=== PATIENT | male | born 1960 | race Caucasian/White ===

== ENCOUNTER → 2023-08-28 10:35 | Outpatient (REF) | payer OTHER, SELFPAY ==
[2023-08-28 11:13] VITALS: BP 141/91; BP_SYST 64
[2023-08-28 11:20] LABS: Hematocrit 48.4 % (39.0-52.0); Hemoglobin 15.5 g/dL (13.0-18.0); Mean Corpuscular Hgb 27.1 pg (27.0-31.0); Mean Corpuscular Volume 84.5 fL (80.0-94.0); Red Blood Cell Count 5.73 10^6/uL (4.70-6.10); Red Cell Dist. Width 14.3 % (11.5-14.5); White Blood Cell Count 5.7 10^3/uL (4.8-10.8)
[2023-08-28 11:32] LABS: INR 1.16; PT 14.6 Sec (11.4-14.6)
[2023-08-28 11:41] LABS: Absolute Neutrophils -Man Diff 2.4 10^3/uL (1.4-6.5); Band Neutrophils 0 % (0-3); Lymphocytes 33 % (20-51); Mean Platelet Volume 12.1 fL (7.4-10.4); Monocytes 24 % (2-9); Normal RBC Morphology Yes; Platelet Count 66 10^3/uL (130-400); Platelets Checked Yes; Segmented Neutrophils 43 % (42-75); Total Cells Counted 100
[2023-08-28] MEDS: ATIVAN 0.5 MG IV (12:21)
[2023-08-28] MEDS: NSS (PRESERVATIVE FREE) 0.25 ML IV (12:21)
[2023-08-28 12:55] VITALS: BP 122/82; BP_SYST 62
[2023-08-28 13:00] VITALS: BP 123/84; BP_SYST 68
[2023-08-28 13:05] VITALS: BP 121/77; BP_SYST 68
== END ==
LOC: RADI 10:35
PROVIDERS: ATTENDING PHYSICIAN Internal Medicine Hematology & Oncology
DX: D69.49 Other primary thrombocytopenia (principal)
CPT/HCPCS: 88305; 88311; 88312; 36415; 38222; 77012; 85025; 85610; 88313; 88341; 88342

== ENCOUNTER 2023-10-08 06:40 | Day surgery (SDC) | payer OTHER, SELFPAY ==
[2023-09-27 08:53] LABS: Hematocrit 46.2 % (39.0-52.0); Hemoglobin 14.7 g/dL (13.0-18.0); Mean Corp Hgb Conc. 31.8 g/dL (33.0-37.0); Mean Corpuscular Volume 84.8 fL (80.0-94.0); Platelet Count 59 10^3/uL (130-400); Red Blood Cell Count 5.45 10^6/uL (4.70-6.10); Red Cell Dist. Width 14.5 % (11.5-14.5); White Blood Cell Count 5.3 10^3/uL (4.8-10.8)
[2023-09-27 10:42] VITALS: BMI 20.2
[2023-09-27 11:08] LABS: Blood Urea Nitrogen 13 mg/dl (9-20); Calcium 9.2 mg/dl (8.4-10.2); Carbon Dioxide 29 mmol/L (22-30); Chloride 101 mmol/L (98-107); Estimated Creatinine Clearance 97 ml/min; Glucose 84 mg/dl (70-99); Potassium 3.8 mmol/L (3.5-5.1); Sodium 139 mmol/L (135-145); eGFR > 60.00
[2023-09-27 12:06] LABS: Absolute Neutrophils -Man Diff 1.5 10^3/uL (1.4-6.5); Atypical Lymphocytes 9 %; Band Neutrophils 2 % (0-3); Eosinophils 1 % (0-6); Lymphocytes 45 % (20-51); Metamyelocytes 2 % (-); Monocytes 13 % (2-9); Platelets Checked Yes; Segmented Neutrophils 28 % (42-75)
[2023-09-27 12:07] LABS: Normal RBC Morphology Yes; Total Cells Counted 100
--- NOTE | 2023-10-01 12:53 | PTCARENOTE ---
Patients 09/26 platelets Rayna Guevara @ Dr Rodriguez office notified- T&S done in PAT, CBC to be repeated DOS
[2023-10-08] VITALS (8 sets, daily range): BP systolic 109–129; BP diastolic 70–86
[2023-10-08] MEDS: NORMOSOL-R 1000 IV (08:04)
[2023-10-08] MEDS: TYLENOL 1000 MG PO (08:05)
[2023-10-08 08:20] LABS: Hematocrit 42.1 % (39.0-52.0); Hemoglobin 14.5 g/dL (13.0-18.0); Mean Corp Hgb Conc. 34.4 g/dL (33.0-37.0); Mean Corpuscular Hgb 27.7 pg (27.0-31.0); Mean Corpuscular Volume 80.3 fL (80.0-94.0); Platelet Count 116 10^3/uL (130-400); Red Blood Cell Count 5.24 10^6/uL (4.70-6.10); Red Cell Dist. Width 15.5 % (11.5-14.5)
--- NOTE | 2023-10-08 09:56 | OR.RPT ---
Operative Report
Operative Report
Primary Surgeon: Dior
Assisting: Darius VEE
Pre-op Diagnosis: Right inguinal hernia
Post-op Diagnosis: Same
Procedure Performed: Robot assisted laparoscopic repair right inguinal ehrnia
Anesthesia Type: GETA
Specimen / Cultures: None
Estimated Blood Loss: 30cc
Complications: None immediate
Operative Findings: Indirect defect, large sac completely reduced, no cord lipoma, oozing deep in the canal controlled with direct pressure, XL MID 3D max
Date of surgery: 10/05/23
Indications:� This 63M developed symptomatic right inguinal hernia. Robot assisted laparoscopic repair was planned.
Description of procedure:� The patient was taken to the operating room and positioned into supine position. The patient�s abdomen was prepped and draped in standard sterile fashion. A time-out was completed verifying correct patient, procedure,
site, positioning, and implants and special equipment prior to beginning this procedure.� The hernia was manually reduced after induction. A stab incision was made in the left upper quadrant, a Veress needle was inserted and proper position was
confirmed by aspiration and saline drop test. Following this, pneumoperitoneum was created with insufflation of carbon dioxide to 12 mmHg. Then a 8mm robotic trocar was inserted above and to the left of the umbilicus. A laparoscope was inserted and
the area of initial trocar entry and Veress needle placement were both inspected and no injuries were found. Two 8mm trocars were then placed lateral to the rectus sheath under direct visualization.
Both inguinal regions were inspected and the median umbilical ligament, medial umbilical ligament, and lateral umbilical fold were identified. Attention was turned to the right groin. The peritoneum was incised transversely above the defect and a
flap was developed in the caudad direction. Ravi�s ligament was identified ultimately dissected to its junction with the iliac vein and the space of Retzius was developed bluntly.� The dissection was continued inferiorly to the iliopubic tract,
with care taken to avoid injury to the femoral branch of the genitofemoral nerve and the lateral femoral cutaneous nerve. The cord structures were parietalized.
The direct space was inspected and a hernia was not identified. The femoral space was inspected a small defect was identified, without contents.� The indirect space was inspected and a hernia was identified and reduced by gentle traction. The canal
was inspected and no cord lipoma was identified. Thre was small ozing from the canal that was controlled by packing a raytec into the space and holding pressue.
Extra large right MID 3D max mesh was passed through a trocar. The mesh was placed into the preperitoneal space and moved into position to lay flat and completely cover the direct, indirect, and femoral spaces with overlap at the midline. The mesh
was secured into place using 2-0 vicryl suture to Ravi�s ligament medially and laterally. Care was taken to avoid the inferolateral triangles containing the iliac vessels and genital nerves. The peritoneal flap was closed over the mesh and secured
with 2-0 monocryl stratafix suture in similar positions of safety. A 14g angiocath was used to decompress the preperitoneal space revealing good seal and all mesh in good position without folding or curling.
After ensuring adequate hemostasis, the trocars were removed and the pneumoperitoneum allowed to escape. The trocar incisions were closed at the skin level using 4-0 monocryl and topical skin adhesive. All counts were correct and the patient
tolerated the procedure well and was taken to the postanesthesia care unit in stable condition.
The assistance of Les VEE was required due to the complexity of the procedure. During the procedure he assisted with retraction, resection, and closure of the wound.
[2023-10-08 10:49] LABS: White Blood Cell Count 5.2 10^3/uL (4.8-10.8)
[2023-10-08] MEDS: TYLENOL 650 MG PO (12:14)
== END 2023-10-08 12:30 | disposition home or self-care (01) ==
LOC: SDS 06:40
PROVIDERS: ATTENDING PHYSICIAN Surgery; FAMILY PHYSICIAN Family Medicine; OTHER PHYSICIAN Internal Medicine Hematology & Oncology
DX: K40.90 Unilateral inguinal hernia, without obstruction or gangrene, not specified as recurrent (principal)
CPT/HCPCS: 49650; 36415; 80048; 85025; 85027; 86850; 86900; 86901; 93005; C1781

== ENCOUNTER 2023-10-12 21:51 | Inpatient (IN) | payer OTHER, SELFPAY ==
[2023-10-12] VITALS (7 sets, daily range): BP systolic 96–121; BP diastolic 63–82; BMI 25.6
--- NOTE | 2023-10-12 16:35 | ED.GENMED ---
History of Present Illness
General
Chief Complaint: Post Operative Problem(s)
Source: patient
Exam Limitations: none
Time Seen by Provider: 10/12/23 16:35
Nursing documentation reviewed up to this point in time: agreed with
History of Present Illness
History of Present Illness:
The patient is a 63-year-old man with a past medical history of thrombocytopenia who recently underwent a right inguinal hernia repair surgery done about 4 days ago. Patient reports fever as well as increased pain and bruising in his right lower
back, right lower abdomen, and scrotal area. His reports that he had a fever as high as 101.5 yesterday. The patient reports increased bruising in his scrotum and in his right flank area. He reports a mild cough and increased frequency of
urination. His reports that he almost passed out multiple times. Patient appears pale and tired.
Past History
Past History
ED Past Medical History: Other (Thrombocytopenia)
ED Past Surgical History: Other
Social History
Tobacco: Non-smoker
Alcohol: None
Drug: None
Personal:
Living: with family
Employment: Other
Family History
Family History: Other
Review of Systems
Review of Systems
Allergies reviewed?: Yes
All Other Systems: ROS reviewed and negative except as documented in HPI and ROS
Constitutional: Reports fatigue
EENT: Reports no symptoms
Respiratory: Reports cough
Cardiac: Reports no symptoms
ABD/GI: Reports abdominal pain and anorexia
: Reports other
Musculoskeletal: Reports no symptoms
Skin: Reports no symptoms
Neurological: Reports no symptoms
Endocrine: Reports no symptoms
Hematologic/Lymphatic: Reports bruising
Phy Exam
Physical Exam
Physical Exam:
Physical Exam
General: Patient appears pale and tired but is awake
Neck: supple. no meningeal signs. normal psoterior pharynx
Heart: Tachycardic, regular
Lungs: no acute respiratory distress. clear bilaterally
Abdomen: Diminished bowel sounds. Extensive right lower flank ecchymoses. Scrotum is fully ecchymotic. Very tender in right flank and right lower quadrant
Neuro: alert and oriented. no focal neurological deficits
Skin: no rash
Psychiatric: well kept. interactive and cooperative
Extremities: no edema. no calf tenderness. negative homans. good distal pulses
Course
Orders/Labs/Results
Orders:
Orders
10/12/23 Dinner
NPO
Allow oral meds: Yes
Allow clear liquids: No
NPO with Ice Chips: No
10/12/23 16:37
0.9% Sodium Chloride 1000 ml [Nss] 1,000 ml IV BOLUS
10/12/23 16:48
CR Chest - 2 Views Urgent
Comment:
Reason For Exam: cough
10/12/23 16:54
Complete Blood Count/With Diff Urgent
Comprehensive Metabolic Panel Urgent
Lactic Acid Q4H
Comment: CANCEL 2nd LACTIC ACID IF 1st LACTIC ACID IS LESS THAN 2
Manual Differential Urgent
Blood Culture Q30M
LION Source: Blood/Venous
Specimen Description:
Blood Culture Q30M
LION Source: Blood/Venous
Specimen Description:
10/12/23 17:14
Morphine Sulfate 2 mg IV NOW STA
Ondansetron Injectable [Zofran] 4 mg IV NOW STA
10/12/23 17:22
Type+Screen Urgent
10/12/23 17:25
Electrocardiogram (*1) Urgent
Reason for Study: Fatigue / Weakness
EKG- Treatment ONCE
10/12/23 18:46
CT Angio Abd/Pelvis w/wo IV [CT Abd/pelvis Angio W/wo Iv] Urgent
Comment:
Reason For Exam: post-op fever, RLQ pain
10/12/23 20:11
Urinalysis Reflex To Culture Urgent
Date Specimen was Collected: 10/12/23
Time Specimen was Collected: 20:08
Urine Microscopic Reflex Cult Urgent
10/12/23 20:43
Morphine Sulfate 2 mg IV NOW STA
Ondansetron Injectable [Zofran] 4 mg IV NOW STA
10/12/23 21:30
Morphine Sulfate 2 mg IV NOW STA
10/12/23 21:34
Admit/Transfer Patient As Directed
Co-Sign Provider:
Level of Care: Inpatient admission
Assign to:: Telemetry
Physician / Group: qing hernández
Diagnosis: sepsis 2/2 r ing hernia repair /pelvic hematoma, thrombocytopenia
Reason for Telemetry: Arrhythmia
Date to Stop Telemetry: 10/15/23
Time to Stop Telemetry: 11:00
Reason for Hospitalization: sepsis 2/2 r ing hernia repair, thrombocytopenia
Expected length of stay greater than two midnights?: Yes
ELOS- Estimated Length of Stay in days: 4
I certify the patient meets the requirements for IP care: Yes
10/12/23 21:35
Code Status As Directed
Resuscitation Status: Full Code
10/12/23 21:45
0.9% Sodium Chloride 1000 ml [Nss] 1,000 ml IV 80 mls/hr
10/12/23 21:46
Consult Surgery [SURGICAL CONSULT] Routine
Consulting Provider: Nitish Mello
Was physician already notified: Yes
Reason for consult: lg hematomat at surgical hernia repair site with sepsis
10/12/23 21:48
Doxycycline Hyclate [Vibramycin] 100 mg 0.9% Sodium Chloride 250 ml [Nss] 250 ml IV NOW
10/12/23 21:56
Lactic Acid Q4H
Comment: CANCEL 2nd LACTIC ACID IF 1st LACTIC ACID IS LESS THAN 2
10/12/23 22:00
Flush (0.9% Sodium Chloride) [Flush (Nss)] See Dose Instructions IV PER PROTOCOL
10/15/23 11:00
DC Protocol for Telemetry ONCE
Abnormal Lab Results
10/12/23 10/12/23
16:54 20:11
WBC 26.5 H 10^3/uL
(4.8-10.8)
RBC 4.23 L 10^6/uL
(4.70-6.10)
Hgb 11.5 L D g/dL
(13.0-18.0)
Hct 34.1 L %
(39.0-52.0)
Plt Count 58 L D 10^3/uL
(130-400)
Abs Neuts (Manual) 11.3 H 10^3/uL
(1.4-6.5)
Lymphocytes (Manual) 3 L %
(20-51)
Monocytes (Manual) 54 H %
(2-9)
Sodium 131 L mmol/L
(135-145)
Chloride 97 L mmol/L
(98-107)
Glucose 135 H mg/dl
(70-99)
Total Bilirubin 1.9 H mg/dl
(0.2-1.3)
AST 16 L U/L
(17-59)
Urine Ketones 3+ A
(Negative)
Urine Bilirubin 1+ A
(Negative)
Leukocyte Esterase Rfl Trace A
(Negative)
10/12/23 16:54
10/12/23 16:54
Vital Signs
Initial and Last Documented VS:
Initial Vital Signs
Temp Pulse Resp BP Pulse Ox
99.4 F 103 18 103/75 97
10/12/23 15:29 10/12/23 15:29 10/12/23 15:29 10/12/23 15:29 10/12/23 15:29
Last Documented Vital Signs
Temp Pulse Resp BP Pulse Ox
99.4 F 102 18 104/66 97
10/12/23 15:29 10/12/23 22:15 10/12/23 22:15 10/12/23 21:00 10/12/23 21:15
MDM/Problems Addressed
Differential Diagnosis Includes:
Postoperative hematoma, intra-abdominal abscess, bacteremia
MDM/Problems Addressed:
Patient presents with acute fever, and right lower abdominal and flank bruising and pain
Chronic conditions affecting care:
Thrombocytopenia
Acute Exacerbation and/or Progression of Chronic Illness:
Given that patient has a history of thrombocytopenia this can cause acute bleeding
*Radiology
Radiology exam reviewed: radiology read reviewed
*Pulse Oximetry
Patient hypoxic: no
*EKG
Interpreted by ED Provider?: NA
Interpretation: normal
Comparison EKG: no changes
Rate: normal
Rhythm: sinus
[place]: normal axis
Interval: normal interval
QRS Pattern: normal QRS
Ischemia: no ischemia
*Tie Worker Interpretation
Rate: tachycardiac
Interpretation: abnormal
Rhythm: sinus
*Critical Care Note
Total Time (30-74mins, 75-104mins- exclusive of procedures): 45 minutes
comment:
45 minutes of critical care given to patient including frequent reassessments of his heart rate, blood pressure, reviewing his CAT scan report with radiology as well as general surgery
Data Reviewed
Review of Other/Old Records Reveals: Operative Reports (Operative note reviewed from Dr. Rader from 10/08/2023 when patient underwent scheduled right inguinal hernia surgery)
Source: patient and spouse
Patient Management
Discussion with other providers: Hospitalist and Other (Case and CAT scan discussed with Dr. Momo Sheldon from general surgery who recommended IV doxycycline)
Escalation/DeEscalation of care consider admission/obs:
Patient admitted to hospitalist service for persistent thrombocytopenia, intra-abdominal hematoma, and fever
ED Attending Note
-
Portions of this chart may have been created with voice recognition software.� Occasional wrong word or��sound alike� substitutions may have occurred due to the inherent limitations of voice recognition software.
Discharge Plan
Departure
Patient Disposition: Admit
Date of Disposition: 10/12/23
Time of Disposition: 20:44
Admit to: Med/Surg
Presentation/result/management discussed w/ accepting MD/DO: Hospitalist
Patient with high blood pressure during this ER visit?: No
Condition: Fair
Discharge Problem:
Acute blood loss anemia, Intra-abdominal hematoma, Chronic thrombocytopenia, Fever, Acute leukocytosis
Interventions
Interventions:
*Risk Screen - Suicide Last Done: 10/12/23 18:39
*General Assessment Last Done: 10/12/23 15:29
*Neglect/Abuse Screening Last Done: 10/12/23 18:39
ED- Fall Risk Assessment Last Done: 10/12/23 18:40
*ED COVID-19 Vaccine History Last Done: 10/12/23 15:29
ED-Skin Assessment Last Done: 10/12/23 18:42
[2023-10-12] MEDS: NSS 1000 IV ×2 (16:55→22:38)
[2023-10-12 17:10] LABS: Hematocrit 34.1 % (39.0-52.0); Hemoglobin 11.5 g/dL (13.0-18.0); Mean Corp Hgb Conc. 33.7 g/dL (33.0-37.0); Mean Corpuscular Hgb 27.2 pg (27.0-31.0); Mean Corpuscular Volume 80.6 fL (80.0-94.0); Platelet Count 58 10^3/uL (130-400); Red Blood Cell Count 4.23 10^6/uL (4.70-6.10); Red Cell Dist. Width 14.4 % (11.5-14.5); White Blood Cell Count 26.5 10^3/uL (4.8-10.8)
[2023-10-12 17:20] LABS: ALT (SGPT) < 10 U/L (0-50); AST (SGOT) 16 U/L (17-59); Albumin 4.2 g/dl (3.5-5.0); Alkaline Phosphatase 74 U/L (38-126); Blood Urea Nitrogen 16 mg/dl (9-20); Carbon Dioxide 25 mmol/L (22-30); Chloride 97 mmol/L (98-107); Glucose 135 mg/dl (70-99); Lactic Acid 1.7 mmol/L (0.7-2.0); Potassium 4.1 mmol/L (3.5-5.1); Sodium 131 mmol/L (135-145); Total Bilirubin 1.9 mg/dl (0.2-1.3); Total Protein 6.6 g/dl (6.3-8.2); eGFR > 60.00
[2023-10-12] MEDS: ZOFRAN 4 MG IV ×2 (17:21→20:49)
[2023-10-12] MEDS: MORPHINE SULFATE 2 MG IV ×3 (17:21→21:54)
[2023-10-12 17:54] LABS: Normal RBC Morphology Yes
[2023-10-12 17:55] LABS: Absolute Neutrophils -Man Diff 11.3 10^3/uL (1.4-6.5); Band Neutrophils 1 % (0-3); Lymphocytes 3 % (20-51); Monocytes 54 % (2-9); Segmented Neutrophils 42 % (42-75); Total Cells Counted 100
[2023-10-12 17:56] LABS: Platelets Checked Yes
[2023-10-12 20:21] LABS: Urine Albumin Trace (Neg - Trace); Urine Bilirubin 1+ (Negative); Urine Character Clear (Clear); Urine Color Yellow; Urine Glucose Negative (Negative); Urine Ketone 3+ (Negative); Urine Leukocyte Trace (Negative); Urine Nitrite Negative (Negative); Urine Occult Blood Negative (Negative); Urine Specific Gravity 1.015 (<1.030); Urine Urobilinogen 1+ (Neg - 1+)
[2023-10-12 20:37] LABS: Urine Red Blood Cell 0-2 /HPF (0-2)
--- NOTE | 2023-10-12 22:06 | HPS.HSE ---
Family Physician
-
Family Physician: Jerzy Ames
Chief Complaint
-
right abdominal pain/scrotal pain, right flank hemtoma
History of Present Illness
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
flank, right lower abdomen and right scrotum. He had fever as high as 101.5 yesterday. He has mild cough increased frequency of urination. His states that he almost passed out multiple times due to pain. He appears pale and tired.
He was recently found to have thrombocytopenia in the past year and underwent a bone marrow biopsy with suspected MDS.
He denies smoking or alcohol use.
Medical History
Past Medical History
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
Past Surgical History: Reports None
Social History
Tobacco: Non-smoker
Alcohol: None
Drug: None
Family History
Family History: Not pertinent
Allergies / Home Medications
Allergies reflects when Allergies were last updated in [facility].
Home Medications with original date entered in [facility] [employer] [facility]
Allergy/Medication List:
Allergies
Allergy/AdvReac Type Severity Reaction Status Date / Time
Penicillins Allergy Swelling Verified 10/08/23 07:56
Home Medications
entacapone 200 mg tablet 200 mg PO QID 08/24/23
tadalafil 5 mg tablet 5 mg PO DAILYPRN PRN ed 08/24/23
carbidopa 25 mg-levodopa 100 mg tablet 1 tab PO QID 10/04/23
oxycodone 5 mg tablet 5 - 10 mg (1 - 2 x 5 mg) PO Q4HPRN PRN moderate to severe pain #14 tabs 10/08/23
acetaminophen 500 mg tablet 1,000 mg PO Q6H PRN mild pain 10/12/23
ibuprofen 200 mg tablet 600 mg PO Q6H PRN mild pain 10/12/23
propranolol 10 mg tablet 20 mg PO BIDPRN PRN tremors 10/12/23
Review of Systems
-
History Source: Patient
A 12 point ROS was completed and negative except as noted: Yes
Constitutional: Reports No Symptoms
EENT: Reports No Symptoms
Respiratory: Reports No Symptoms
Cardiac: Reports No Symptoms
Abdomen/GI: Reports See HPI
: Reports No Symptoms
Musculoskeletal: Reports No Symptoms
Skin: Reports No Symptoms
Neurological: Reports No Symptoms
Endocrine: Reports No Symptoms
Hematologic/Lymphatic: Reports No Symptoms
Psych: Reports No Symptoms
Physical Exam
Vital Signs
Vital Signs
Temp Pulse Resp BP Pulse Ox
99.4 F 102 17 104/66 97
10/12/23 15:29 10/12/23 21:15 10/12/23 21:15 10/12/23 21:00 10/12/23 21:15
Physical Exam
General: Well Developed, Well Nourished and No Apparent Distress
HEENT: NormoCephalic, Moist mucous membranes and Atraumatic
Respiratory: Clear
Cardiac: S1/S2 and Regular Rhythm; No Murmur or Rub
GI: Soft, Non Distended, Normal Bowel Sounds and Tender (right scrotal echymosis, right flank echymosis and tenderness through abdomen and inguinal region); No Organomegaly
Rectal: Deferred by Provider
Musculoskeletal: No Clubbing, No Cyanosis and No Edema
Skin: No Rash
Neuro: Nonfocal/grossly intact
Laboratory Results
-
10/12/23 16:54
10/12/23 16:54
Laboratory Results
Lactic Acid 1.7 mmol/L (0.7-2.0) 10/12/23 16:54
Total Bilirubin 1.9 mg/dl (0.2-1.3) H 10/12/23 16:54
AST 16 U/L (17-59) L 10/12/23 16:54
ALT < 10 U/L (0-50) 10/12/23 16:54
Alkaline Phosphatase 74 U/L (38-126) 10/12/23 16:54
Data Reviewed
-
Lab Data: Labs Reviewed by me
Old Records: Reviewed
Impression/Plan
-
IMPRESSION:
PLAN:
# Sepsis (fever, leukocytosis, tachycardia) secondary to large likely infected hematoma in the right lower quadrant of the abdomen after right-sided inguinal hernia surgery 4 days prior
-Extending from the right groin to the right abdomen extending into the right inguinal canal
-N.p.o.
-Check blood cultures
-IV fluids
-Aztreonam/Flagyl
-General surgery consulted
# Thrombocytopenia secondary to MDS
-Platelets of 58
# Anemia secondary to postoperative blood loss
-Hemoglobin of 11.5 from 14.5
-Continue to monitor
Parkinson's disease
-Continue carbidopa-levodopa, entacapone, propranolol for tremors
Full code
DVT prophylaxis�none
NPO
[2023-10-12 22:14] LABS: Lactic Acid 1.2 mmol/L (0.7-2.0)
[2023-10-12] MEDS: VIBRAMYCIN 260 MG IV (22:38)
[2023-10-12 22:59] LABS: INR 1.34; PT 16.4 Sec (11.4-14.6)
[2023-10-12 23:00] LABS: APTT 39.1 Sec (23.4-35.0)
--- NOTE | 2023-10-12 23:30 | TRANSFER ---
Pt admitted from ED to room 435-2. Pt AAOx3. VSS. Pt was able to walk from stretcher to bed with minimal assist. was bedside to help with admission questions. Pt oriented to room and call crandall placed within reach.
[2023-10-12] MEDS: COMTAN 200 MG PO (23:51)
[2023-10-12] MEDS: SINEMET 25-100 1 TABLET PO (23:52)
[2023-10-12] MEDS: AZACTAM 1000 MG IV (23:53)
[2023-10-13] VITALS (13 sets, daily range): BP systolic 105–147; BP diastolic 74–85
[2023-10-13] MEDS: FLAGYL 500 MG 100 IV ×4 (00:27→23:27)
[2023-10-13] MEDS: DILAUDID 1 MG IV ×6 (00:29→22:34)
[2023-10-13] MEDS: TYLENOL 1000 MG PO ×2 (04:02→21:24)
[2023-10-13 06:44] LABS: Hematocrit 28.4 % (39.0-52.0); Hemoglobin 9.2 g/dL (13.0-18.0); Mean Corp Hgb Conc. 32.4 g/dL (33.0-37.0); Mean Corpuscular Volume 83.3 fL (80.0-94.0); Platelet Count 59 10^3/uL (130-400); Red Blood Cell Count 3.41 10^6/uL (4.70-6.10); Red Cell Dist. Width 14.4 % (11.5-14.5); White Blood Cell Count 28.9 10^3/uL (4.8-10.8)
[2023-10-13 07:09] LABS: ALT (SGPT) < 10 U/L (0-50); AST (SGOT) 14 U/L (17-59); Albumin 3.5 g/dl (3.5-5.0); Alkaline Phosphatase 69 U/L (38-126); Blood Urea Nitrogen 19 mg/dl (9-20); Calcium 8.4 mg/dl (8.4-10.2); Carbon Dioxide 23 mmol/L (22-30); Chloride 99 mmol/L (98-107); Estimated Creatinine Clearance 96 ml/min; Glucose 108 mg/dl (70-99); Potassium 4.2 mmol/L (3.5-5.1); Sodium 133 mmol/L (135-145); Total Bilirubin 1.4 mg/dl (0.2-1.3); Total Protein 5.7 g/dl (6.3-8.2); eGFR > 60.00
[2023-10-13] MEDS: SINEMET 25-100 1 TABLET PO ×3 (08:24→20:47)
[2023-10-13] MEDS: AZACTAM 1000 MG IV ×3 (08:26→23:29)
[2023-10-13] MEDS: TRANEXAMIC ACID 100 IV (09:00)
[2023-10-13] MEDS: COMTAN 200 MG PO ×3 (09:00→20:47)
[2023-10-13 09:22] LABS: Absolute Neutrophils -Man Diff 17.6 10^3/uL (1.4-6.5); Band Neutrophils 0 % (0-3); Lymphocytes 10 % (20-51); Monocytes 28 % (2-9); Segmented Neutrophils 61 % (42-75)
[2023-10-13 09:23] LABS: Metamyelocytes 1 % (-); Normal RBC Morphology Yes; Platelets Checked Yes; Total Cells Counted 100
--- NOTE | 2023-10-13 09:26 | W.PN.HOSP.TC ---
Today's Communication/Plan
-
IV antibiotics. Surgery consult. IR consulted. Monitor CBC
Assessment / Plan
Assessment / Plan
Physical exam:
General: Acute on chronically ill
HEENT: Normocephalic, Atraumatic and Moist Mucous Membranes
Respiratory: Clear to Auscultation; Negative Wheezes, Rales or Rhonchi
Cardiac: Regular Rhythm and S1/S2
GI: Soft, Tender and Nondistended
Musculoskeletal: No Clubbing, No Cyanosis and No Edema
Neuro: Awake, Alert and Oriented
Psych: Calm
A/P:
Sepsis suspicion for infected hematoma (right-sided inguinal hernia repair about 4 days [employer]):
Surgery consult appreciated
Status post TXA 1 g IV
Continue broad-spectrum IV antibiotic, aztreonam and Flagyl
Surgery consult appreciated
Surgery consulted IR for possible embolization/arteriogram.
Keep n.p.o. until surgery clears him for diet
Hold off on PT OT eval until cleared clinical status stabilizes
Discussed with at bedside
MDS with pancytopenia and acute blood loss anemia/thrombocytopenia:
Request hematology-oncology consult (Malone texted oncology today)
Hemoglobin 11.5-->9.2-->8.5
Transfuse blood if needed
Plt 58-->59-->62
WBC 26.5-->33.1
Continue to monitor CBC closely
Parkinson's disease
Continue carbidopa-levodopa, entacapone, propranolol for tremors
PT eval when more stable
Full code
DVT prophylaxis�SCDs
Time spent 52 minutes
Anticipated Discharge: > 48 hours
Subjective/Interval History
-
Date of Service: October 13, 2023
Patient with abdominal pain although better than admission. No nausea or vomiting. Afebrile
Objective Data
-
Labs:
Laboratory Results
10/12/23 10/13/23 10/13/23
22:37 05:36 12:00
WBC 28.9 H Pending
Hgb 9.2 L Pending
Hct 28.4 L Pending
Plt Count 59 L Pending
PT 16.4 H
INR 1.34
APTT 39.1 H
Sodium 133 L
Potassium 4.2
Chloride 99
Carbon Dioxide 23
BUN 19
Creatinine 0.9
Glucose 108 H
Calcium 8.4
Total Bilirubin 1.4 H
AST 14 L
ALT < 10
Alkaline Phosphatase 69
Vital Signs:
Vital Signs
Temp Pulse Resp BP Pulse Ox
98.8 F 109 14 121/76 96
10/13/23 07:00 10/13/23 07:00 10/13/23 07:00 10/13/23 07:00 10/13/23 07:00
I&O
10/12/23 10/13/23 10/14/23
06:59 06:59 06:59
Output Total 400 / 400
Balance -400 / -400
--- NOTE | 2023-10-13 10:09 | CON.GS ---
Medical History
-
Chief Complaint: abdominal pain
History of Present Illness:
This is a 63 yo male with a h/o MDS with thrombocytopenia and Parkinson's who had RAL repair of a right inguinal hernia as an outpatient on 10/08/[address] Rader. He was doing well initially post op, but noted increasing pain, swelling and
bruising as the week went on. He notes discomfort with urination including burning and frequency. His initial BM was on the harder side right after surgery and he took a dose of Miralax with looser BM's daily since that time. On POD #3, he developed
fevers as high as 101.5 and felt the sensation that he might pass out when going to the bathroom. He denies hematochezia or hematuria. He presented on POD #4 through the ED for evaluation. There is ecchymosis from his mid right abdomen down into the
scrotum on exam with firmness to the lateral right abdomen. Tenderness with guarding present to the right side and somewhat to the left as well. The scrotum is with moderate swelling with ecchymosis, soft without palpable hematoma.
Past Medical History
Past Medical History: Other (Parkinson's, MDS with thrombocytopenia)
Past Surgical History: Hernia Repair (RAL right inguinal hernia repair on 10/07)
Social History
Tobacco: Non-Smoker
Alcohol: None
Family History
Family History: Reviewed & Not Pertinent
Allergies / Home Medications
Allergy/AdvReac Type Severity Reaction Status Date / Time
Penicillins Allergy Swelling Verified 10/08/23 07:56
�Medication �Instructions �Recorded �Confirmed �Type
entacapone 200 mg tablet 200 mg PO QID 08/24/23 10/12/23 History
tadalafil 5 mg tablet 5 mg PO DAILYPRN PRN ed 08/24/23 10/12/23 History
carbidopa 25 mg-levodopa 100 mg 1 tab PO QID 10/04/23 10/12/23 History
tablet
oxycodone 5 mg tablet 5 - 10 mg (1 - 2 x 5 mg) PO Q4HPRN 10/08/23 10/12/23 Rx
PRN moderate to severe pain #14
tabs
acetaminophen 500 mg tablet 1,000 mg PO Q6H PRN mild pain 10/12/23 10/12/23 History
ibuprofen 200 mg tablet 600 mg PO Q6H PRN mild pain 10/12/23 10/12/23 History
propranolol 10 mg tablet 20 mg PO BIDPRN PRN tremors 10/12/23 10/12/23 History
Review of Systems
-
History Source: Patient and Family
All other systems: Negative unless noted
A 10 point review of systems was completed, and was negative except as per HPI.
Physical Exam
Vital Signs
Temp Pulse Resp BP Pulse Ox
98.8 F 109 14 121/76 96
10/13/23 07:00 10/13/23 07:00 10/13/23 07:00 10/13/23 07:00 10/13/23 07:00
10/12/23 10/13/23 10/14/23
06:59 06:59 06:59
Actual Weight 88.1 kg
Body Mass Index (BMI) 25.6
Lab Results
10/13/23 05:36
WBC 28.9 10^3/uL (4.8-10.8) H 10/13/23 05:36
Hgb 9.2 g/dL (13.0-18.0) L 10/13/23 05:36
Hct 28.4 % (39.0-52.0) L 10/13/23 05:36
Plt Count 59 10^3/uL (130-400) L 10/13/23 05:36
Physical Exam
General: Sweats; Negative Comfortable
HEENT: Normocephalic, Moist Mucous Membranes and Other (pale MM)
Respiratory: Non Labored Respirations
GI: Soft (generalized soft abd, but firm to the lateral right to mid abdomen with ecchymosis present) and Tender (Bilaterally R>L with guarding)
Skin: Other (Pale. Incisions intact with light ecchymosis, well approximated)
Neuro: Awake, Alert and AO x 3
Psych: Calm
Data Reviewed
-
CT Scan: Image Personally Visualized and interpreted, Report Reviewed by me, Discussed with Physician, Discussed with Patient and Discussed with Family
Labs: Labs Reviewed by me, Discussed with Physician, Discussed with Nurse, Discussed with Patient and Discussed with Family
Old Records: Reviewed
Assessment / Plan
-
63 yo male with h/o thrombocytopenia with MDS who is POD #5 RAL right inguinal hernia repair with Dr. Rader presenting with worsening pain, urinary discomfort and near syncope. Ecchymosis and firmness noted to right lower and mid lateral abd with
ecchymosis extending into the scrotum. CT imaging of abd/pelvis reviewed with large hematoma noted in the RLQ. Acute blood loss anemia present as well as baseline thrombocytopenia. Significant leukocytosis present, unclear etiology. Mild
tachycardia with tmax of 100.7 since presentation. UA with trace leuk esterase.
Reviewed with IR physician, with ?blush/active bleeding noted on image. Will plan urgent Arteriogram in IR.
--NPO for above procedure
--Transfuse platelets this am, consent obtained
--TXA 1gm IV
--Follow serial labs, net labs at 12pm. Transfuse as needed.
--Check bladder scans and urine culture
--Continue ABX
--SCD's for VTE ppx
[2023-10-13] MEDS: TRANEXAMIC ACID 110 MG IV (10:19)
--- NOTE | 2023-10-13 11:26 | PTCARENOTE ---
Pt transferred to INR/OR today. PT NPO since along with small sips of water for medication. Pt ambulated/contact guard onto stretcher without any complications. escorted pt transport. Report given to Viv Bailey RN.
[2023-10-13] MEDS: ZOFRAN 4 MG IV (11:40)
--- NOTE | 2023-10-13 13:13 | W.PN.IRAD.PR ---
Procedure Note
-
Arteriogram performed. No arterial extravasation seen on arteriograms of the common iliac, internal iliac and multiple branches, external iliac, and inferior epigastric arteries.
Bedrest for 2 hours.
--- NOTE | 2023-10-13 13:44 | PTCARENOTE ---
Received report from Leo ANGELES M.RN. Pt ordered to remain flat until 1503. R groin accessed for procedure. Pt AAO*3 and denies pain. Vital Signs Stable. Right Groin with band Aid Clean Dry and intact. B/L LE warm to touch with normal palpable
pulses. PT states intact sensation to all extremities. Call crandall within reach.
[2023-10-13] MEDS: NSS 1000 IV (14:01)
--- NOTE | 2023-10-13 15:04 | CM ---
manager legal reviewed patient's chart and met with patient and spouse, patient lives in a 2 story home, patient is independent with adl's and ambulation, no dme.
[facility]
PCP: Dr. Blas
Plan; Home with spouse when stable.
[2023-10-13 15:06] LABS: Hematocrit 24.5 % (39.0-52.0); Hemoglobin 8.5 g/dL (13.0-18.0); Mean Corp Hgb Conc. 34.7 g/dL (33.0-37.0); Mean Corpuscular Hgb 27.5 pg (27.0-31.0); Mean Corpuscular Volume 79.3 fL (80.0-94.0); Platelet Count 62 10^3/uL (130-400); Red Blood Cell Count 3.09 10^6/uL (4.70-6.10); Red Cell Dist. Width 14.4 % (11.5-14.5); White Blood Cell Count 33.1 10^3/uL (4.8-10.8)
[2023-10-13 20:19] LABS: Hematocrit 22.6 % (39.0-52.0); Hemoglobin 7.7 g/dL (13.0-18.0); Mean Corp Hgb Conc. 34.1 g/dL (33.0-37.0); Mean Corpuscular Hgb 27.1 pg (27.0-31.0); Mean Corpuscular Volume 79.6 fL (80.0-94.0); Mean Platelet Volume 11.5 fL (7.4-10.4); Platelet Count 92 10^3/uL (130-400); Red Blood Cell Count 2.84 10^6/uL (4.70-6.10); Red Cell Dist. Width 14.6 % (11.5-14.5); White Blood Cell Count 28.1 10^3/uL (4.8-10.8)
[2023-10-13] MEDS: COMTAN PO (23:00)
[2023-10-13] MEDS: SINEMET 25-100 PO (23:00)
[2023-10-13] MEDS: STERILE WATER FOR INJECTION 10 ML IV (23:29)
[2023-10-14] VITALS (12 sets, daily range): BP systolic 103–133; BP diastolic 68–81
[2023-10-14] MEDS: DILAUDID 1 MG IV ×5 (03:06→23:18)
[2023-10-14 07:50] LABS: Hematocrit 21.3 % (39.0-52.0); Mean Corp Hgb Conc. 32.4 g/dL (33.0-37.0); Mean Corpuscular Hgb 27.2 pg (27.0-31.0); Mean Corpuscular Volume 83.9 fL (80.0-94.0); Mean Platelet Volume 13.5 fL (7.4-10.4); Nucleated Red Blood Cells % 0 % (-); Platelet Count 80 10^3/uL (130-400); Red Blood Cell Count 2.54 10^6/uL (4.70-6.10); Red Cell Dist. Width 14.5 % (11.5-14.5)
[2023-10-14 08:00] LABS: Hemoglobin 6.9 g/dL (13.0-18.0)
[2023-10-14] MEDS: NSS 1000 IV ×2 (08:17→23:18)
[2023-10-14] MEDS: NSS IV (08:17)
[2023-10-14 08:19] LABS: ALT (SGPT) < 10 U/L (0-50); AST (SGOT) 15 U/L (17-59); Albumin 3.1 g/dl (3.5-5.0); Alkaline Phosphatase 72 U/L (38-126); Blood Urea Nitrogen 29 mg/dl (9-20); Calcium 8.3 mg/dl (8.4-10.2); Carbon Dioxide 25 mmol/L (22-30); Chloride 101 mmol/L (98-107); Estimated Creatinine Clearance 87 ml/min; Glucose 108 mg/dl (70-99); Potassium 4.6 mmol/L (3.5-5.1); Sodium 134 mmol/L (135-145); Total Bilirubin 1.2 mg/dl (0.2-1.3); Total Protein 5.2 g/dl (6.3-8.2); eGFR > 60.00
[2023-10-14] MEDS: STERILE WATER FOR INJECTION 10 ML IV ×2 (08:19→17:45)
[2023-10-14] MEDS: AZACTAM 1000 MG IV ×2 (08:19→17:45)
[2023-10-14] MEDS: SINEMET 25-100 1 TABLET PO ×4 (08:19→21:02)
[2023-10-14] MEDS: FLAGYL 500 MG 100 IV ×2 (08:19→17:45)
[2023-10-14] MEDS: COMTAN 200 MG PO ×4 (08:20→21:02)
--- NOTE | 2023-10-14 08:35 | W.PN.HOSP.TC ---
Today's Communication/Plan
-
IV antibiotics. Blood and platelet transfusions.
Assessment / Plan
Assessment / Plan
Physical exam:
General: Acute on chronically ill
HEENT: Normocephalic, Atraumatic and Moist Mucous Membranes
Respiratory: Clear to Auscultation; Negative Wheezes, Rales or Rhonchi
Cardiac: Regular Rhythm and S1/S2
GI: Soft, Tender and Nondistended
Musculoskeletal: No Clubbing, No Cyanosis and No Edema
Neuro: Awake, Alert and Oriented
Psych: Calm
A/P:
Sepsis suspicion for infected hematoma (right-sided inguinal hernia repair about 4 days [employer]):
Surgery consult appreciated
Status post TXA 1 g IV
Continue broad-spectrum IV antibiotic, aztreonam and Flagyl
Surgery consult appreciated
Surgery consulted IR for possible embolization/arteriogram. IR noticed arteriogram performed on 10/12 but no arterial extravasation seen.
Keep n.p.o. until surgery clears him for diet
Hold off on PT OT eval until cleared clinical status stabilizes
Hematology consulted and they feel his underlying MDS contributing to presentation. Transfusions today as below.
Discussed with at bedside
MDS with pancytopenia and acute blood loss anemia/thrombocytopenia:
Hematology-oncology consulted- waiting for input
Hemoglobin 11.5-->9.2-->8.5-->6.9
Transfuse blood today
Plt 58-->59-->62-->92-->80
S/p plt transfusion and plan for more platelet transfusion today
WBC 26.5-->33.1-->pending
Continue to monitor CBC closely
Parkinson's disease
Continue carbidopa-levodopa, entacapone, propranolol for tremors
PT eval when more stable
Full code
DVT prophylaxis�SCDs
Time spent 52 minutes
Anticipated Discharge: > 48 hours
Subjective/Interval History
-
Date of Service: October 14, 2023
Patient still having abdominal pain but less than before. No nausea or vomiting. No chest pain or shortness of breath. Afebrile
Objective Data
-
Labs:
Laboratory Results
10/13/23 10/14/23
20:05 05:29
WBC 28.1 H Pending
Hgb 6.9 L*
Hct 21.3 L
Plt Count 80 L
Sodium 134 L
Potassium 4.6
Chloride 101
Carbon Dioxide 25
BUN 29 H
Creatinine 1.0
Glucose 108 H
Calcium 8.3 L
Total Bilirubin 1.2
AST 15 L
ALT < 10
Alkaline Phosphatase 72
Vital Signs:
Vital Signs
Temp Pulse Resp BP Pulse Ox
98.7 F 105 18 131/77 98
10/14/23 07:28 10/14/23 07:28 10/14/23 07:28 10/14/23 07:28 10/14/23 07:28
I&O
10/13/23 10/14/23 10/15/23
06:59 06:59 06:59
Intake Total 0 / 0
Output Total 400 / 400 650 / 650
Balance -400 / -400 -650 / -650
--- NOTE | 2023-10-14 09:17 | CON.ONC ---
Impression
Impression
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
Plan
Plan
preop number not prohibitive to surgery-- suspect there is some component of platelet dysfunction-- have called [facility] noting that platelets are not available but will be today-- ordered 2 additional units blood urgent this am then plts urgent when
available---his meds are not associated with plt dysfunction so would not alter his current therapy-- suspect fever is reaction to compartmentalized blood-- blood cultures negative @ 24 hours-- PLEASE repeat H&H and PLTS post transfusion-- will f/u
Patient History
History of Present Illness
63yo WM with recently diagnosed high grade MDS with complex karyotype evaluated for bicytopenia (ANEMIA/ THROMBOCYTOPENIA) underwent right inguinal herniorrhaphy Sunday with hGB 11.5 plts 58k. He arrived to ER 10/12/2023 with fever w/o neutropenia
and progressive swelling/discoloration of the groiin/scrotum/ right abdomen having CT AP that noted [id number] soft tissue density extending from right groin to right abdomen causing bladder displacemen-- his HGB dropped now down to 6.9 after 1 unit
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 He has had no spontaneous sites of other abnormal bleeding such as epistaxis/BRBPR/large ecchmotic palpable skin sites of extremities.
Past-Medical/Surgical History
Parkinson's disease,
Patient Medication
�Medication �Instructions �Recorded �Confirmed �Last Taken �Type
entacapone 200 mg tablet 200 mg PO QID 08/24/23 10/12/23 10/12/23 18:30 History
tadalafil 5 mg tablet 5 mg PO DAILYPRN PRN ed 08/24/23 10/12/23 10/05/23 History
carbidopa 25 mg-levodopa 100 mg 1 tab PO QID 10/04/23 10/12/23 10/12/23 18:30 History
tablet
oxycodone 5 mg tablet 5 - 10 mg (1 - 2 x 5 mg) PO Q4HPRN 10/08/23 10/12/23 Unknown Rx
PRN moderate to severe pain #14
tabs
acetaminophen 500 mg tablet 1,000 mg PO Q6H PRN mild pain 10/12/23 10/12/23 Unknown History
ibuprofen 200 mg tablet 600 mg PO Q6H PRN mild pain 10/12/23 10/12/23 Unknown History
propranolol 10 mg tablet 20 mg PO BIDPRN PRN tremors 10/12/23 10/12/23 Unknown History
Active Medications
Generic Name Dose Route Start Last Admin
Trade Name Freq PRN Reason Stop Dose Admin
Acetaminophen 1,000 mg 10/12/23 23:16 10/13/23 21:24
Acetaminophen 500 Mg Tablet PO 11/09/23 23:15 1,000 mg
Q6H PRN Administration
mild pain
Aztreonam 1,000 mg 10/12/23 23:45 10/14/23 08:19
Aztreonam 1,000 Mg/10 Ml Vial IV 1,000 mg
Q8H ELIEL Administration
Carbidopa/Levodopa 1 tablet 10/12/23 23:16 10/14/23 08:19
Carbidopa (25 Mg)/Levodopa (100 Mg) Regular Release Tablet PO 11/09/23 23:15 1 tablet
QID ELIEL Administration
Entacapone 200 mg 10/12/23 23:16 10/14/23 08:20
Entacapone 200 Mg Tablet PO 11/09/23 23:15 200 mg
QID ELIEL Administration
Hydromorphone HCl 1 mg 10/12/23 23:16 10/14/23 08:20
Hydromorphone 1 Mg/Ml Carpuject IV 10/26/23 23:15 1 mg
Q4HPRN PRN Administration
severe pain
Hydromorphone HCl 0.5 mg 10/12/23 23:16
Hydromorphone 0.5 Mg/0.5 Ml Syringe IV 10/26/23 23:15
Q4HPRN PRN
mod pain
Sodium Chloride 1,000 mls @ 80 mls/hr 10/12/23 21:45 10/14/23 08:17
Nss IV 1,000 mls
.[id number] ELIEL Administration
Metronidazole 100 mls @ 100 mls/hr 10/12/23 23:45 10/14/23 08:19
Flagyl 500 Mg IV 100 mls
Q8H ELIEL Administration
Ondansetron HCl 4 mg 10/12/23 23:16 10/13/23 11:40
Ondansetron 4 Mg/2 Ml Vial IV 11/09/23 23:15 4 mg
Q6HPRN PRN Administration
NAUSEA/VOMITING
Sodium Chloride 0 flush 10/12/23 22:00
Sodium Chloride 0.9% (Flush) Syringe IV 11/09/23 21:59
PER PROTOCOL ELIEL
Sterile Water 10 ml 10/13/23 23:45 10/14/23 08:19
Sterile Water For Injection 10 Ml Vial IV 11/10/23 23:44 10 ml
Q8H ELIEL Administration
Review of Systems
-
History Source: Patient and Family
All Other Systems: Reviewed and Negative
Physical Exam
-
General: Appears in Distress and Pain
HEENT: Moist Mucous Membranes
Cardiology: Normal Sinus Rhythm
Pulmonary: Clear
GI: Soft and Other (large area ecchymoses extending to scrotum)
Musculoskeletal: No Clubbing, No Cyanosis and No Edema
Extremities: Pulses Present
Neurology: Non Focal
Skin: Warm
Labs
Lab Results
WBC 28.1 10^3/uL (4.8-10.8) H 10/13/23 20:05
RBC 2.54 10^6/uL (4.70-6.10) L 10/14/23 05:29
Hgb 6.9 g/dL (13.0-18.0) L* 10/14/23 05:
Hct 21.3 % (39.0-52.0) L 10/14/23 05:
MCV 83.9 fL (80.0-94.0) 10/14/23 05:
MCH 27.2 pg (27.0-31.0) 10/14/23 05:
MCHC 32.4 g/dL (33.0-37.0) L 10/14/23 05:29
RDW 14.5 % (11.5-14.5) 10/14/23 05:
Plt Count 80 10^3/uL (130-400) L 10/14/23 05:
MPV 13.5 fL (7.4-10.4) H 10/14/23 05:
Creatinine 1.0 mg/dL (0.7-1.3) 10/14/23 05:
Vital Signs
Vital Signs
Temp Pulse Resp BP Pulse Ox
98.7 F 105 18 131/77 98
10/14/23 07:28 10/14/23 07:28 10/14/23 07:28 10/14/23 07:28 10/14/23 07:28
--- NOTE | 2023-10-14 12:58 | W.PN.GS2 ---
Addendum entered and electronically signed by Nitish Mello MD 10/14/23 15:24:
63-year-old male with Parkinson's, thrombocytopenia secondary to MDS, recent robotic inguinal hernia repair on 09/[address] Rader, who presents with worsening groin pain and swelling into the groin and abdomen; WBC 28.9 from 26.5, Hb 9.2 from 11.5,
CTA showing large 18 x 13 x 8 cm hematoma extending from the right groin into the right mid abdomen, no air-fluid levels
Tmax 100.2 today; HR 90s, down from 100-110s, normotensive; on exam, firmness extending from right groin to right lateral mid abdomen which appears stable from yesterday, no rebound or guarding, now only mildly tender to palpation, significantly
improved; bilateral testicles palpable and nonswollen, hematoma within the scrotum stable in size
WBC 20 from 28, Hb 6.9 from 7.7
� Most likely, hematoma represents postoperative bleeding from inguinal hernia repair
-CTA with blush on 10/11, 10/12 s/p TXA and plts x1, s/p IR angio on 10/12 without extravasation
-Hb trending down, but slowly; vitals improving and hematoma appears stable; ordered pRBC x2 for today
�Hold all AC, trend Hb every 6-8 hours until stabilized
-Discussed risk of continued monitoring versus surgery; surgery would likely require an exlap and inguinal incision for hematoma evacuation; his vitals have been improving as has his physical exam; his Hb does continue to downtrend but with no
extravasation on angio yesterday, this could represent equilibration from the recent bleed and IV fluids; after explaining the above, patient agreed with continued monitoring/nonoperative measures
�Continue to monitor leukocytosis; improving today
-Appreciate heme; likely compartmentalized blood
-Less likely infected hematoma, per radiology
-Cont IV abx with aztreonam and flagyl (patient has penicillin allergy)
�Ok for clears today; NPO at midnight
� Continue pain control with Tylenol and Dilaudid
� Continue home meds, okay for p.o. meds
� Appreciate hospitalist
Original Note:
Today's Communication / Plan
-
Transfuse
clears today
Assessment / Plan
-
63-year-old male with Parkinson's, MDS, recent robotic inguinal hernia repair on 10/[address] Rader presenting with hematoma fromation
Initial CTA showing large 18 x 13 x 8 cm hematoma extending from the right groin into the right mid abdomen, no air-fluid level. Arteriogram on 10/12 without extravasation.
s/p TXA and platelet transfusion on 10/12
Acute blood loss anemia. Hemoglobin with down trend today, but relative stable from last draw.
Significant leukocytosis present: hematology following with us, ?secondary to MDS
Low grade temps likely secondary to compartmentalized blood
AFVSS
No plans for emergent surgery for evacuation of hematoma, will follow with conservative measures
--2 units pRBC's today
--Ok for clears this am, NPO after MN in case further bleeding noted and procedure required. High risk for ileus, will monitor.
--Analgesics/antiemetics prn
--ABX empirically as per medicine team
--SCD's for VTE ppx, hold chemical ppx given bleeding concern
Subjective Data
-
Date of Service: October 14, 2023
Patient seen and examined at bedside with Dr. Mello. Denies n/v. Passing flatus. Pain to abdomen improving. Denies difficulty voiding.
Objective Data
-
Intake and Output
10/13/23 10/14/23 10/15/23
06:59 06:59 06:59
Intake Total 0 / 0 0 / 0
Output Total 400 / 400 650 / 650
Balance -400 / -400 -650 / -650 0 / 0
Intake:
Blood Product Amount Infused ( 0 / 0 0 / 0
mL)
Packed Rbc Leukoreduced Unit 0 / 0
[id number]
Pathogen Redu Plt Leukored 0 / 0
Unit [id number]
Output:
Urine, Voided 400 / 400 650 / 650
Vital Signs
Temp Pulse Resp BP Pulse Ox
99.7 F 93 16 118/75 95
10/14/23 12:38 10/14/23 12:38 10/14/23 12:38 10/14/23 12:38 10/14/23 12:15
Lab Results
10/14/23 05:29
10/14/23 05:29
Calcium 8.3 mg/dl (8.4-10.2) L 10/14/23 05:29
Total Bilirubin 1.2 mg/dl (0.2-1.3) 10/14/23 05:
AST 15 U/L (17-59) L 10/14/23 05:29
ALT < 10 U/L (0-50) 10/14/23 05:29
Alkaline Phosphatase 72 U/L (38-126) 10/14/23 05:29
Total Protein 5.2 g/dl (6.3-8.2) L 10/14/23 05:29
Albumin 3.1 g/dl (3.5-5.0) L 10/14/23 05:29
Physical Exam
-
NAD, pale
ABD with firmness extending from right groin to right lateral mid abdomen without rebound or guarding, but tender to palpation (improved); bilateral testicles palpable and nonswollen, minimal hematoma within the scrotum
[2023-10-14 14:26] LABS: White Blood Cell Count 20.1 10^3/uL (4.8-10.8)
[2023-10-14] MEDS: TYLENOL 1000 MG PO (21:02)
[2023-10-14 22:03] LABS: Hemoglobin 7.5 g/dL (13.0-18.0); Mean Corp Hgb Conc. 34.1 g/dL (33.0-37.0); Mean Corpuscular Hgb 27.5 pg (27.0-31.0); Mean Corpuscular Volume 80.6 fL (80.0-94.0); Platelet Count 76 10^3/uL (130-400); Red Blood Cell Count 2.73 10^6/uL (4.70-6.10); Red Cell Dist. Width 14.5 % (11.5-14.5)
[2023-10-14 22:21] LABS: Platelets Checked Yes
[2023-10-14 22:23] LABS: Hypochromasia 1+; Normal RBC Morphology No; Total Cells Counted 100
[2023-10-14 22:29] LABS: Absolute Neutrophils -Man Diff 13.4 10^3/uL (1.4-6.5); Band Neutrophils 3 % (0-3); Lymphocytes 4 % (20-51); Monocytes 29 % (2-9); Segmented Neutrophils 64 % (42-75)
[2023-10-14 22:30] LABS: Normal RBC Morphology Yes; Pathologist Reviewed Yes; Platelets Checked Yes; Total Cells Counted 100
[2023-10-15] VITALS (12 sets, daily range): BP systolic 109–132; BP diastolic 66–85
[2023-10-15] MEDS: FLAGYL 500 MG 100 IV ×2 (01:48→08:26)
[2023-10-15] MEDS: STERILE WATER FOR INJECTION 10 ML IV ×2 (01:48→08:25)
[2023-10-15] MEDS: AZACTAM 1000 MG IV ×2 (01:48→08:26)
[2023-10-15] MEDS: DILAUDID 0.5 MG IV (05:08)
[2023-10-15 07:05] LABS: Hemoglobin 7.4 g/dL (13.0-18.0); Mean Corp Hgb Conc. 33.6 g/dL (33.0-37.0); Mean Corpuscular Hgb 27.7 pg (27.0-31.0); Mean Corpuscular Volume 82.4 fL (80.0-94.0); Mean Platelet Volume 13.3 fL (7.4-10.4); Platelet Count 64 10^3/uL (130-400); Red Blood Cell Count 2.67 10^6/uL (4.70-6.10); Red Cell Dist. Width 14.7 % (11.5-14.5); White Blood Cell Count 10.8 10^3/uL (4.8-10.8)
[2023-10-15 07:39] LABS: ALT (SGPT) < 10 U/L (0-50); AST (SGOT) 16 U/L (17-59); Albumin 2.8 g/dl (3.5-5.0); Alkaline Phosphatase 54 U/L (38-126); Blood Urea Nitrogen 26 mg/dl (9-20); Carbon Dioxide 27 mmol/L (22-30); Chloride 106 mmol/L (98-107); Estimated Creatinine Clearance 108 ml/min; Glucose 92 mg/dl (70-99); Potassium 4.3 mmol/L (3.5-5.1); Sodium 138 mmol/L (135-145); Total Bilirubin 1.5 mg/dl (0.2-1.3); Total Protein 4.9 g/dl (6.3-8.2); eGFR > 60.00
[2023-10-15] MEDS: COMTAN 200 MG PO ×4 (08:25→21:51)
[2023-10-15] MEDS: SINEMET 25-100 1 TABLET PO ×4 (08:25→21:45)
[2023-10-15] MEDS: DILAUDID 1 MG IV ×3 (09:31→23:38)
--- NOTE | 2023-10-15 10:14 | W.PN.HOSP.TC ---
Today's Communication/Plan
-
.
Assessment / Plan
Assessment / Plan
Physical exam:
General: Acute on chronically ill
HEENT: Normocephalic, Atraumatic and Moist Mucous Membranes
Respiratory: Clear to Auscultation; Negative Wheezes, Rales or Rhonchi
Cardiac: Regular Rhythm and S1/S2
GI: Soft, Tender right side > left side, Bruising seen on right side and Nondistended.
hematoma within the scrotum
Musculoskeletal: No Clubbing, No Cyanosis and No Edema
Neuro: Awake, Alert and Oriented
Psych: Calm
A/P:
# Anemia of chronic disease due to MDS with pancytopenia with acute blood loss anemia/thrombocytopenia:
HGB seems to stabilize around 7
Status post Robot assisted laparoscopic repair right inguinal hernia by Dr Rader on 10/07.
Patient received 2 units of blood transfusion. Will give another 2 units today.
Platelets around 60,000. No prohibitive for surgery
Monitor vital signs.
Primary oncologist Dr. Chong but patient is sent for second opinion with [place].
Appreciate oncology
#SIRS signs present on admission
With low-grade temperature, leukocytosis
Was initially thought to be sepsis but cultures remain negative. Fever could be reactive
On empiric antibiotics. Will continue and ask ID for input
Per radiologist, less likely infected hematoma
Surgery consult appreciated
Status post TXA 1 g IV
Surgery & hematology & IR consult appreciated
# Hyponatremia, resolving
No confusion
# Parkinson's disease
Primary neurologist at [place]
Continue carbidopa-levodopa, entacapone, propranolol for tremors
PT eval to continue when possible
Full code
DVT prophylaxis�SCDs
Total time spent to see the patient on the floor, examine the patient, review data and lab results, discuss treatment plan with patient, nursing staff around 55 minutes
Anticipated Discharge: > 48 hours
Subjective/Interval History
-
Date of Service: October 15, 2023
Still with abdominal wall pain requiring Dilaudid
No chest pain
No sob
Objective Data
-
Labs:
Laboratory Results
10/14/23 10/15/23
21:53 06:36
WBC 14.0 H 10.8
Hgb 7.5 L 7.4 L
Hct 22.0 L 22.0 L
Plt Count 76 L 64 L
Sodium 138
Potassium 4.3
Chloride 106
Carbon Dioxide 27
BUN 26 H
Creatinine 0.8
Glucose 92
Calcium 8.0 L
Total Bilirubin 1.5 H
AST 16 L
ALT < 10
Alkaline Phosphatase 54
Vital Signs:
Vital Signs
Temp Pulse Resp BP Pulse Ox
98.7 F 92 19 117/66 94
10/15/23 07:30 10/15/23 07:30 10/15/23 07:30 10/15/23 07:30 10/15/23 07:30
I&O
10/14/23 10/15/23 10/16/23
06:59 06:59 06:59
Intake Total 0 / 0 500 / 500
Output Total 650 / 650 950 / 950
Balance -650 / -650 -450 / -450
[2023-10-15 11:12] LABS: Absolute Neutrophils -Man Diff 7.9 10^3/uL (1.4-6.5); Band Neutrophils 3 % (0-3); Lymphocytes 10 % (20-51); Metamyelocytes 4 % (-); Monocytes 16 % (2-9); Myelocytes 12 % (-); Promyelocytes 1 % (-); Segmented Neutrophils 54 % (42-75)
--- NOTE | 2023-10-15 11:40 | W.PN.GS2 ---
Today's Communication / Plan
-
Ice packs/scrotal elevation
Advance to regular diet
Assessment / Plan
-
63-year-old male with Parkinson's, MDS, recent robotic inguinal hernia repair on 10/[address] Rader presenting with hematoma fromation
Initial CTA showing large 18 x 13 x 8 cm hematoma extending from the right groin into the right mid abdomen, no air-fluid level.
Arteriogram on 10/12 without extravasation.
s/p TXA and platelet transfusion on 10/12
s/p 2 units PRBC's on 10/13
Hemoglobin stable from last draw (7.5 to 7.4). Given negative arteriogram and stable h/h, bleeding has likely stopped.
Persistent thrombocytopenia in setting of MDS
Significant leukocytosis present on admission, now resolved: hematology following with us, ?secondary to MDS/ reactive. Do not suspect that this is infection of surgical site
Low grade temps likely secondary to compartmentalized blood, last temp was 100.6 @1845 on 10/13
VSS
+bowel function, voiding without difficulty
No plans for emergent surgery for evacuation of hematoma, will follow with conservative measures
--2 units pRBC's today as per medicine team
--Hematology following with us given h/o MDS
--Advance diet
--Analgesics/antiemetics prn
--Scrotal elevation/support for relief of dependent edema
--Ice packs as tolerated
--ABX empirically as per medicine team, ok from surgical perspective to follow off abx
--SCD's for VTE ppx, hold chemical ppx given bleeding concern
Subjective Data
-
Date of Service: October 15, 2023
Patient seen and evaluated at bedside with Dr. Sheldon. Denies n/v. Passing flatus and some loose stools. Pain is a little worse today. Denies chills. Feels quite fatigued. Voiding without difficulty.
Objective Data
-
Intake and Output
10/14/23 10/15/23 10/16/23
06:59 06:59 06:59
Intake Total 0 / 0 500 / 500 0 / 0
Output Total 650 / 650 950 / 950
Balance -650 / -650 -450 / -450 0 / 0
Intake:
Blood Product Amount Infused ( 0 / 0 500 / 500 0 / 0
mL)
Packed Rbc Leukoreduced Unit 0 / 0
[id number]
Packed Rbc Leukoreduced Unit 250 / 250
[id number]
Packed Rbc Leukoreduced Unit 250 / 250
[id number]
Pathogen Redu Plt Leukored 0 / 0
Unit [id number]
Output:
Urine, Voided 650 / 650 950 / 950
Other:
Number of approximated LARGE 1
amounts of urine
Vital Signs
Temp Pulse Resp BP Pulse Ox
98.9 F 96 18 124/68 94
10/15/23 11:29 10/15/23 11:29 10/15/23 11:29 10/15/23 11:29 10/15/23 07:30
Lab Results
10/15/23 06:36
10/15/23 06:36
Calcium 8.0 mg/dl (8.4-10.2) L 10/15/23 06:36
Total Bilirubin 1.5 mg/dl (0.2-1.3) H 10/15/23 06:36
AST 16 U/L (17-59) L 10/15/23 06:36
ALT < 10 U/L (0-50) 10/15/23 06:36
Alkaline Phosphatase 54 U/L (38-126) 10/15/23 06:36
Total Protein 4.9 g/dl (6.3-8.2) L 10/15/23 06:36
Albumin 2.8 g/dl (3.5-5.0) L 10/15/23 06:36
Physical Exam
-
NAD, pale
ABD with firmness extending from right groin to right lateral mid abdomen without rebound or guarding, but tender to palpation (improved); bilateral testicles palpable and non swollen, hematoma within the scrotum with moderate dependent edema present
[2023-10-15] MEDS: ROXICODONE 5 MG PO (13:13)
--- NOTE | 2023-10-15 14:34 | CON.ID ---
Consultation
-
Date/Time Consultation Requested: October 15, 2023 0638
Date/Time Consultation Performed: October 15, 2023 1430
Requesting Provider: Dr. Lisseth Barron
Performing Provider: Dr. Suellen Merrill
Reason for Consultation: Infected hematoma
Chief Complaint / Past History
Chief Complaint
Severe pain right groin and scrotum
History of Present Illness
63-year-old male with Parkinson's, chronic thrombocytopenia who recently underwent bone marrow biopsy on August 28, 2023 which showed MDS, recent robotic assisted laparoscopic right inguinal hernia repair with mesh on October 08, 2023. Postop he developed
pain which became progressively worse and severe. His scrotum was very swollen, black and blue. Then his noted ecchymosis over the right flank. He spiked a fever on Sunday, October 11 and came to the ER. Temperature was 100.7. White count
elevated and peaked at 33. Platelets 58. CAT scan of the abdomen pelvis shows an 18 x 13.5 x 8 cm hematoma extending from the right groin to the right abdomen without air-fluid levels. Arteriogram shows no contrast extravasation from iliac and
inferior epigastric arteries. Patient's hemoglobin has decreased requiring packed red blood cell transfusions. Patient has been icing and elevating the scrotum. Pain is improving. Otherwise no other complaints. He had burning with urination at
home, urine culture here negative.
Past History
Additional Past Medical History:
Parkinson's
MDS, dx'd 08/28/2023
Chronic thrombocytopenia
Robot assisted laparoscopic repair right inguinal hernia with mesh (10/08/23)
Allergy History:
Penicillins Allergy (Verified 10/08/23 07:56)
facial swelling at age 6. Does not recall ever taking cephalosporins.
Medications Reviewed: Yes
Current Antibiotics:
Aztreonam day 4
Metronidazole day 4
Social History
Tobacco: Non-Smoker
Alcohol: None
Drug: None
Personal:
Living: With Family
Family History
Family History: Not Pertinent
Review of Systems
Review of Systems
General: Negative Chills or Change in Appetite
HEENT: Negative Sinus Problems, Headache or Pharyngitis
Cardiovascular: Negative Chest Pain
Respiratory: Negative Dyspnea or Cough
Gasteroenterology: Other (no diarrhea); Negative Nausea or Vomiting
Genital / Urological: Negative Flank Pain
Neurological: Negative Headache
All systems: All other systems were reviewed and were negative
Vital Signs
Temp Pulse Resp BP Pulse Ox
99.7 F 92 16 114/71 96
10/15/23 14:15 10/15/23 14:15 10/15/23 14:15 10/15/23 14:15 10/15/23 11:48
Selected Entries
10/14/23
17:35
Temp 100.6 F H
Physical Exam
Physical Exam
Constitutional: No Acute Distress
Eyes: No Conjunctival Hemorrhage and Sclera Anicteric
Cardiovascular: Regular Rate and S1/S2
Pulmonary: Clear
Gastrointestinal: Soft, Non Tender, Non Distended and Normal Bowel Sounds
Genito-Urinary: Other (Scrotum significant edema with ecchymosis of entire right side extending to groin. Left flank ecchmotic. ); Negative Walker
Extremities: Negative Edema
Neurological: AO x 3
Lab / Diagnostic Study Results
10/15/23 06:36
10/15/23 06:36
Abs Immat Gran (auto) Cancelled 10/15/23 06:00
Absolute Neuts (auto) Cancelled 10/15/23 06:00
Absolute Lymphs (auto) Cancelled 10/15/23 06:00
Absolute Monos (auto) Cancelled 10/15/23 06:00
Absolute Basos (auto) Cancelled 10/15/23 06:00
Total Counted 100 10/14/23 21:53
Immature Gran % Cancelled 10/15/23 06:00
Neutrophils % Cancelled 10/15/23 06:00
Lymphocytes % Cancelled 10/15/23 06:00
Monocytes % Cancelled 10/15/23 06:00
Eosinophils % Cancelled 10/15/23 06:00
Basophils % Cancelled 10/15/23 06:00
Abs Neuts (Manual) 7.9 10^3/uL (1.4-6.5) H 10/14/23 21:53
Segmented Neutrophils 54 % (42-75) 10/14/23 21:53
Band Neutrophils 3 % (0-3) 10/14/23 21:53
Lymphocytes (Manual) 10 % (20-51) L 10/14/23 21:53
PT 16.4 Sec (11.4-14.6) H 10/12/23 22:37
INR 1.34 10/12/23 22:37
Lactic Acid 1.2 mmol/L (0.7-2.0) 10/12/23 21:56
Microbiology Results
Micro:
10/14/23 04:08 Urine Culture - Final
Urine NO GROWTH
10/12/23 16:54 Blood Culture - Preliminary
Blood/Venous No Growth in 48 hours- Final report to follow
10/12/23 16:54 Blood Culture - Preliminary
Blood/Venous No Growth in 48 hours- Final report to follow
10/13/23 Angiography: No extravasation of contrast was demonstrated during arteriogram, therefore embolization was not performed. Arteriography was performed of the common iliac, internal iliac, branches of the internal iliac, external iliac, and
inferior epigastric artery.
10/12/23 CT a/p: Large lobulated heterogeneous lobulated 'soft tissue' density seen in the right lower quadrant of the abdomen measuring at least 18 x 13.5 x 7.7 cm extending from the right groin to the right abdomen without findings to confirm
active blood flow within, most likely representing a large hematoma which also extends into the right inguinal canal.
Assessment / Plan
# Post-op right inguinal hernia repair large hematoma
# Acute blood loss anemia
# MDS/chronic pancytopenia
# Leukocytosis resolved
# Low grade fevers
- Fever and leukocytosis were reactive to the large hematoma
- Hematoma is not infected.
- Blood cx's negative.
- DC Aztreonam/metronidazole.
ID will sign off.
--- NOTE | 2023-10-15 14:55 | CM ---
CM reviewed chart- ADC>48 hours
Surgery following for conservative treatment at this time for hematoma
ID consult placed today and pending
CM will continue to follow for dc planning
Discharge Disposition- home, follow for needs
[2023-10-15] MEDS: ULTRAM 50 MG PO (20:10)
--- NOTE | 2023-10-15 22:19 | W.PN.ONC2 ---
Today's Communication / Plan
-
Failure of hemoglobin to improve much despite 4U PRBC's is concerning for ongoing blood loss.
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 However they are acute in onset following hospital D/C.
For decreased platelet count with possible superimposed platelet dysfunction, consider tranexamic acid 1.3 g PO TID. Can give IV if brisker bleeding.
Tachycardia also concerning for blood loss.
Low threshold for repeat abdominal imaging to eval for worsening hematoma.
Repeat Coags.
Impression
Impression
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
Plan
Plan
preop number not prohibitive to surgery-- suspect there is some component of platelet dysfunction-- have called [facility] noting that platelets are not available but will be today-- ordered 2 additional units blood urgent this am then plts urgent when
available---his meds are not associated with plt dysfunction so would not alter his current therapy-- suspect fever is reaction to compartmentalized blood-- blood cultures negative @ 24 hours-- PLEASE repeat H&H and PLTS post transfusion-- will f/u
Subjective/Objective
Chief Complaint
Heme/Onc follow up of MDS, GIB
Subjective
C/o pain across lower abdomen. Concerned he may be having ongoing bleeding. Got 2U PRBC's 10/13 and another 2U today. Platelets were transfused 10/12. Hgb not much improved from 6.9 on admission suggesting ongoing blood loss.
Vital Signs:
Vital Signs
Temp Pulse Resp BP Pulse Ox
99.1 F 97 18 132/85 95
10/15/23 19:00 10/15/23 19:00 10/15/23 19:00 10/15/23 19:00 10/15/23 19:00
Lab Results:
Laboratory Data
WBC 10.8 10^3/uL (4.8-10.8) 10/15/23 06:36
Hgb 7.4 g/dL (13.0-18.0) L 10/15/23 06:36
Plt Count 64 10^3/uL (130-400) L 10/15/23 06:36
PT 16.4 Sec (11.4-14.6) H 10/12/23 22:37
INR 1.34 10/12/23 22:37
APTT 39.1 Sec (23.4-35.0) H 10/12/23 22:37
eGFR > 60.00 10/15/23 06:36
Physical Exam
HR 90's, BP 109/72 to 130/72
Awake, alert, mildly ill appearing
[2023-10-15 23:51] LABS: INR 1.28; PT 15.8 Sec (11.4-14.6)
[2023-10-16] VITALS (7 sets, daily range): BP systolic 112–164; BP diastolic 73–108; PULSE 92–108; O2SAT 95; BMI 25.6
[2023-10-16] MEDS: ULTRAM 50 MG PO ×3 (06:03→22:00)
[2023-10-16 07:06] LABS: Hematocrit 28.6 % (39.0-52.0); Mean Corp Hgb Conc. 33.2 g/dL (33.0-37.0); Mean Corpuscular Hgb 27.9 pg (27.0-31.0); Mean Corpuscular Volume 83.9 fL (80.0-94.0); Platelet Count 99 10^3/uL (130-400); Red Blood Cell Count 3.41 10^6/uL (4.70-6.10); Red Cell Dist. Width 14.7 % (11.5-14.5); White Blood Cell Count 8.8 10^3/uL (4.8-10.8)
[2023-10-16 07:11] LABS: Hemoglobin 9.5 g/dL (13.0-18.0)
[2023-10-16 07:28] LABS: ALT (SGPT) < 10 U/L (0-50); AST (SGOT) 18 U/L (17-59); Albumin 2.9 g/dl (3.5-5.0); Alkaline Phosphatase 56 U/L (38-126); Blood Urea Nitrogen 21 mg/dl (9-20); Calcium 8.1 mg/dl (8.4-10.2); Carbon Dioxide 27 mmol/L (22-30); Chloride 103 mmol/L (98-107); Estimated Creatinine Clearance 108 ml/min; Glucose 92 mg/dl (70-99); Sodium 137 mmol/L (135-145); Total Bilirubin 1.5 mg/dl (0.2-1.3); Total Protein 5.1 g/dl (6.3-8.2); eGFR > 60.00
[2023-10-16] MEDS: SINEMET 25-100 1 TABLET PO ×4 (08:43→22:00)
--- NOTE | 2023-10-16 08:48 | W.PN.HOSP.TC ---
Today's Communication/Plan
-
Likely dc in am
Assessment / Plan
Assessment / Plan
Physical exam:
General: Acute on chronically ill
HEENT: Normocephalic, Atraumatic and Moist Mucous Membranes
Respiratory: Clear to Auscultation; Negative Wheezes, Rales or Rhonchi
Cardiac: Regular Rhythm and S1/S2
GI: Soft, Tender right side > left side, Bruising seen on right side and Nondistended.
hematoma within the scrotum
Musculoskeletal: No Clubbing, No Cyanosis and No Edema
Neuro: Awake, Alert and Oriented
Psych: Calm
A/P:
# Anemia of chronic disease due to MDS with pancytopenia with acute blood loss anemia/thrombocytopenia:
HGB seems to stabilize. HGB at 7 on 10/14 after only 2 units and not 4.
HGB around 9 post 4 units which is a good response. I think his HGB will stabilize around 8
No need for transfusion today, will do PT/OT , use of Incentive spirometry
Status post Robot assisted laparoscopic repair right inguinal hernia by Dr Rader on 10/07.
Platelets around 90,000.
Stable vitals
Iron studies will be accurate after blood transfusions.
Primary oncologist Dr. Chong but patient is sent for second opinion with [facility].
Appreciate oncology
#SIRS signs present on admission
With low-grade temperature, leukocytosis , likely reactive. Agree to stop IV ABx.
Was initially thought to be sepsis but cultures remain negative. Fever is reactive
Per radiologist, less likely infected hematoma
Status post TXA 1 g IV
Surgery & hematology & ID consult appreciated
# Hyponatremia, resolving
No confusion
# Parkinson's disease
Primary neurologist at [facility]
Continue carbidopa-levodopa, entacapone, propranolol for tremors
PT eval to continue when possible
Full code
DVT prophylaxis�SCDs
Total time spent to see the patient on the floor, examine the patient, review data and lab results, discuss treatment plan with patient, , nursing staff around 57 minutes
Anticipated Discharge: Within 24 hours
Subjective/Interval History
-
Date of Service: October 16, 2023
Less abd discomfort
No fevers
Objective Data
-
Labs:
Laboratory Results
10/15/23 10/16/23
23:34 06:39
WBC 8.8
Hgb 9.5 L D
Hct 28.6 L
Plt Count 99 L D
PT 15.8 H
INR 1.28
APTT 38.0 H
Sodium 137
Potassium 4.0
Chloride 103
Carbon Dioxide 27
BUN 21 H
Creatinine 0.8
Glucose 92
Calcium 8.1 L
Total Bilirubin 1.5 H
AST 18
ALT < 10
Alkaline Phosphatase 56
Vital Signs:
Vital Signs
Temp Pulse Resp BP Pulse Ox
98.6 F 91 18 136/76 95
10/16/23 07:10 10/16/23 07:10 10/16/23 07:10 10/16/23 07:10 10/16/23 07:10
I&O
10/15/23 10/16/23 10/17/23
06:59 06:59 06:59
Intake Total 500 / 500 500 / 500
Output Total 950 / 950 510 / 510
Balance -450 / -450 -10 / -10
[2023-10-16 08:53] LABS: Absolute Neutrophils -Man Diff 5.7 10^3/uL (1.4-6.5); Anisocytosis 1+; Band Neutrophils 1 % (0-3); Eosinophils 1 % (0-6); Hypochromasia Slight; Lymphocytes 19 % (20-51); Metamyelocytes 3 % (-); Monocytes 9 % (2-9); Myelocytes 3 % (-); Normal RBC Morphology No; Platelets Checked Yes; Polychromasia Slight; Segmented Neutrophils 64 % (42-75); Total Cells Counted 100
[2023-10-16] MEDS: COMTAN 200 MG PO ×4 (09:08→22:00)
[2023-10-16] MEDS: DILAUDID 1 MG IV ×2 (09:37→16:50)
--- NOTE | 2023-10-16 10:58 | W.PN.GS2 ---
Today's Communication / Plan
-
--Trend H&H, transfusion as needed
--Regular diet
Assessment / Plan
-
63-year-old male with Parkinson's, MDS, recent robotic inguinal hernia repair on 10/[address] Rader presenting with hematoma formation
Initial CTA showing large 18 x 13 x 8 cm hematoma extending from the right groin into the right mid abdomen, no air-fluid level.
Arteriogram on 10/12 without extravasation.
s/p TXA and platelet transfusion on 10/12
s/p 2 units PRBC's on 10/13
Hemoglobin response after 2 U (9.5 from 7.4). Given negative arteriogram and stable h/h, bleeding has likely stopped.
Thrombocytopenia improved today in setting of MDS
Significant leukocytosis present on admission, now resolved: hematology following with us, ?secondary to MDS/ reactive. Do not suspect that this is infection of surgical site
Low grade temps likely secondary to compartmentalized blood, last temp was 100.6 @1845 on 10/13
VSS
+bowel function, voiding without difficulty
No plans for emergent surgery for evacuation of hematoma, will follow with conservative measures
--Trend H&H, transfusion per Medicine and Heme
--Hematology following with us given h/o MDS, appreciate
--Regular diet
--Analgesics/antiemetics prn
--Scrotal elevation/support for relief of dependent edema
--Ice packs as tolerated
--ABX empirically as per medicine team, ok from surgical perspective to follow off abx
--SCD's for VTE ppx, hold chemical ppx given bleeding concern
Subjective Data
-
Date of Service: October 16, 2023
Feels improved overall. Groin and scrotal soreness. No dizziness or lightheadedness. Urinating without issues. Tolerating a diet without any nausea or vomiting.
Objective Data
-
Intake and Output
10/15/23 10/16/23 10/17/23
06:59 06:59 06:59
Intake Total 500 / 500 500 / 500
Output Total 950 / 950 510 / 510
Balance -450 / -450 -10 / -10
Intake:
Blood Product Amount Infused ( 500 / 500 500 / 500
mL)
Packed Rbc Leukoreduced Unit 250 / 250
[id number]
Packed Rbc Leukoreduced Unit 250 / 250
[id number]
Packed Rbc Leukoreduced Unit 250 / 250
[id number]
Packed Rbc Leukoreduced Unit 250 / 250
[id number]
Output:
Urine, Walker 510 / 510
Urine, Voided 950 / 950
Other:
Number of approximated LARGE 1
amounts of urine
Vital Signs
Temp Pulse Resp BP Pulse Ox
98.6 F 91 18 136/76 95
10/16/23 07:10 10/16/23 07:10 10/16/23 07:10 10/16/23 07:10 10/16/23 07:10
Lab Results
10/16/23 06:39
10/16/23 06:39
Calcium 8.1 mg/dl (8.4-10.2) L 10/16/23 06:39
Total Bilirubin 1.5 mg/dl (0.2-1.3) H 10/16/23 06:39
AST 18 U/L (17-59) 10/16/23 06:39
ALT < 10 U/L (0-50) 10/16/23 06:39
Alkaline Phosphatase 56 U/L (38-126) 10/16/23 06:39
Total Protein 5.1 g/dl (6.3-8.2) L 10/16/23 06:39
Albumin 2.9 g/dl (3.5-5.0) L 10/16/23 06:39
Physical Exam
-
Gen: NAD
Abd: firmness extending from R groin to lateral mid abdomen without rebound or guarding, flank ecchymosis, tender to palpation, bilateral testicles palpable and non swollen, hematoma within the scrotum with moderate dependent edema present,
incisions c/d/i - ecchymosis, no erythema or drainage
[2023-10-17] MEDS: ULTRAM 50 MG PO ×3 (05:31→17:43)
[2023-10-17 07:00] VITALS: BP 122/72
--- NOTE | 2023-10-17 07:30 | W.PN.ONC2 ---
Today's Communication / Plan
-
Patient is stable for discharge receiving blood counts are reasonably stable.
Outpatient follow-up with Dr. Chong
Impression
Impression
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
Recent right hernia repair
MDS
Parkinson disease
Plan
Plan
Bleeding seems to have stabilized.
Blood counts improved yesterday following transfusion of both PRBC x 4 & platelets x 1 with improved counts. [Hgb 7.4> 9.5; PLT 64> 99]
Today CBC pending.
Subjective/Objective
Chief Complaint
ACS Heme Onc
Subjective
No new complaints reported. Hematoma appears stable per surgery. Denies new bleeding.
Vital Signs:
Vital Signs
Temp Pulse Resp BP Pulse Ox
99.0 F 91 18 112/75 96
10/16/23 23:39 10/16/23 23:39 10/16/23 23:39 10/16/23 23:39 10/16/23 23:39
Lab Results:
Laboratory Data
WBC 8.8 10^3/uL (4.8-10.8) 10/16/23 06:39
Hgb 9.5 g/dL (13.0-18.0) L D 10/16/23 06:39
Plt Count 99 10^3/uL (130-400) L D 10/16/23 06:39
PT 15.8 Sec (11.4-14.6) H 10/15/23 23:34
INR 1.28 10/15/23 23:34
APTT 38.0 Sec (23.4-35.0) H 10/15/23 23:34
eGFR > 60.00 10/16/23 06:39
Physical Exam
Cardiology: S1 and S2
Pulmonary: Clear
GI: Soft and Other (Ecchymoses right flank)
Extremities: No C/C/E
[2023-10-17 07:37] LABS: Hematocrit 31.2 % (39.0-52.0); Hemoglobin 10.4 g/dL (13.0-18.0); Mean Corp Hgb Conc. 33.3 g/dL (33.0-37.0); Mean Corpuscular Hgb 27.9 pg (27.0-31.0); Mean Corpuscular Volume 83.6 fL (80.0-94.0); Mean Platelet Volume 13.1 fL (7.4-10.4); Platelet Count 134 10^3/uL (130-400); Red Blood Cell Count 3.73 10^6/uL (4.70-6.10); Red Cell Dist. Width 15.4 % (11.5-14.5); White Blood Cell Count 8.7 10^3/uL (4.8-10.8)
[2023-10-17] MEDS: SINEMET 25-100 1 TABLET PO ×4 (08:22→21:22)
[2023-10-17] MEDS: COMTAN 200 MG PO ×4 (08:22→21:22)
--- NOTE | 2023-10-17 09:41 | W.PN.HOSP.TC ---
Today's Communication/Plan
-
Pt wants to go home tomorrow after seeing counseling case manager, might need hospital bed
Will coordinate with oncology for OP follow up.
Assessment / Plan
Assessment / Plan
Physical exam:
General: Acute on chronically ill
HEENT: Normocephalic, Atraumatic and Moist Mucous Membranes
Respiratory: Clear to Auscultation; Negative Wheezes, Rales or Rhonchi
Cardiac: Regular Rhythm and S1/S2
GI: Soft, less Tender right side > left side, Bruising seen on right side and Nondistended.
hematoma within the scrotum
Musculoskeletal: No Clubbing, No Cyanosis and No Edema
Neuro: Awake, Alert and Oriented
Psych: Calm
A/P:
# Anemia of chronic disease due to MDS with pancytopenia with acute blood loss anemia/thrombocytopenia:
HGB seems to stabilize.
HGB around 10post 4 units which is a good response. I think his HGB will stabilize around 8-9
No need for transfusion today, will do PT/OT , use of Incentive spirometry
Status post Robot assisted laparoscopic repair right inguinal hernia by Dr Rader on 10/07.
Platelets around 90,000.
Stable vitals
Iron studies will be not accurate after blood transfusions.
Primary oncologist Dr. Chong but patient is sent for second opinion with [facility].
Appreciate oncology help
#SIRS signs present on admission
With low-grade temperature, leukocytosis , likely reactive. Agree to stop IV ABx.
Was initially thought to be sepsis but cultures remain negative. Fever is reactive
Per radiologist, less likely infected hematoma
Status post TXA 1 g IV
Surgery & hematology & ID consult appreciated
# High bilirubin
Expect it after bleeding into hematoma and subsequent hemolysis
# Hyponatremia, resolving
No confusion
# Parkinson's disease
Primary neurologist at [facility]
Continue carbidopa-levodopa, entacapone, propranolol for tremors
PT eval to continue when possible
Full code
DVT prophylaxis�SCDs
Total time spent to see the patient on the floor, examine the patient, review data and lab results, discuss treatment plan with patient, , nursing staff around 57 minutes
Anticipated Discharge: Within 24 hours
Subjective/Interval History
-
Date of Service: October 17, 2023
Doing well
Less pain medicine need
Objective Data
-
Labs:
Laboratory Results
10/17/23
07:03
WBC 8.7
Hgb 10.4 L
Hct 31.2 L
Plt Count 134 D
Vital Signs:
Vital Signs
Temp Pulse Resp BP Pulse Ox
98.7 F 85 18 122/72 97
10/17/23 07:00 10/17/23 07:00 10/17/23 07:00 10/17/23 07:00 10/17/23 07:00
I&O
10/16/23 10/17/23 10/18/23
06:59 06:59 06:59
Intake Total 500 / 500 1320 / 1320
Output Total 510 / 510 840 / 840
Balance -10 / -10 480 / 480
--- NOTE | 2023-10-17 09:52 | W.PN.GS2 ---
Today's Communication / Plan
-
Wean pain meds
Dispo planning
Assessment / Plan
-
63-year-old male with Parkinson's, MDS, recent robotic inguinal hernia repair on 10/[address] Rader presenting with hematoma formation
Initial CTA showing large 18 x 13 x 8 cm hematoma extending from the right groin into the right mid abdomen, no air-fluid level.
Arteriogram on 10/12 without extravasation.
s/p TXA and platelet transfusion on 10/12
s/p 2 units PRBC's on 10/13
Hemoglobin response after 2 U (9.5 from 7.4). Given negative arteriogram and stable h/h, bleeding has likely stopped.
Thrombocytopenia improved today in setting of MDS
Significant leukocytosis present on admission, now resolved: hematology following with us, ?secondary to MDS/ reactive. Do not suspect that this is infection of surgical site
Low grade temps likely secondary to compartmentalized blood, last temp was 100.6 @1845 on 10/13
VSS
+bowel function, voiding without difficulty
No plans for emergent surgery for evacuation of hematoma, will follow with conservative measures
--Hb and plts stabilized
--Hematology following with us given h/o MDS, appreciate
--Regular diet
--Analgesics/antiemetics prn
--Scrotal elevation/support for relief of dependent edema
--Ice packs as tolerated
--Abx stopped yesterday, no new fevers
--SCD's for VTE ppx, hold chemical ppx given bleeding concern
--Cont wean pain meds, dispo planning, likely DC tomorrow if no further issues
Subjective Data
-
Date of Service: October 17, 2023
AFVSS, pain improving, isela diet
Objective Data
-
Intake and Output
10/16/23 10/17/23 10/18/23
06:59 06:59 06:59
Intake Total 500 / 500 1320 / 1320
Output Total 510 / 510 840 / 840
Balance -10 / -10 480 / 480
Intake:
Oral fluids 1320 / 1320
Blood Product Amount Infused ( 500 / 500
mL)
Packed Rbc Leukoreduced Unit 250 / 250
[id number]
Packed Rbc Leukoreduced Unit 250 / 250
[id number]
Output:
Urine, Walker 510 / 510 840 / 840
Vital Signs
Temp Pulse Resp BP Pulse Ox
98.7 F 85 18 122/72 97
10/17/23 07:00 10/17/23 07:00 10/17/23 07:00 10/17/23 07:00 10/17/23 07:00
Lab Results
10/17/23 07:03
10/16/23 06:39
Calcium 8.1 mg/dl (8.4-10.2) L 10/16/23 06:39
Total Bilirubin 1.5 mg/dl (0.2-1.3) H 10/16/23 06:39
AST 18 U/L (17-59) 10/16/23 06:39
ALT < 10 U/L (0-50) 10/16/23 06:39
Alkaline Phosphatase 56 U/L (38-126) 10/16/23 06:39
Total Protein 5.1 g/dl (6.3-8.2) L 10/16/23 06:39
Albumin 2.9 g/dl (3.5-5.0) L 10/16/23 06:39
Physical Exam
-
Gen: NAd
Abd; soft, approp ttp, nd
: Right groin firm ecchymosis
[2023-10-17] MEDS: TYLENOL 1000 MG PO ×2 (10:26→21:22)
--- NOTE | 2023-10-17 14:26 | VNURNOTE ---
Home Health Liaison met with patient and Dana at 1200 to discuss [facility] nurse/therapy, visits, schedule and homebound status. Patient is agreeable and understands that visits at home will be 2-3 x per week to assess and teach medical
management. Many questions answered.
[facility] brochure provided with contact information. Patient is aware that [facility] will contact them for start of care in 1-2 days after discharge from .
[facility] referral completed in [facility].
Liaison discussed various DME that patient would like to order for home: Lift chair, donut cushion, walker and commode.
Both patient and understand that lift chair could be rented at approximately $125/per month, commode and donut cushion may not be covered by insurance. DME company will call to discuss charges if any and rental fee and arrange delivery of
above items.
Lift chair, donut cushion, commode and walker ordered from [facility], all info faxed at [phone].
--- NOTE | 2023-10-17 14:40 | CM ---
administrative manager reviewed patient's chart and spoke with physician and plan is for patient to return to home possible discharge tomorrow to home with [facility], patient is requesting a lift chair, donut, walker, and commode, [facility] liaison has reached out to
patient and equipment company.
Plan; Home with spouse and [facility].
[2023-10-17 15:28] VITALS: BP 111/78
[2023-10-17 22:55] VITALS: BP 117/78
[2023-10-18] MEDS: ULTRAM 50 MG PO ×2 (01:08→09:25)
[2023-10-18] MEDS: TYLENOL 1000 MG PO ×2 (05:54→13:38)
[2023-10-18 06:19] LABS: Hemoglobin 9.5 g/dL (13.0-18.0); Mean Corp Hgb Conc. 33.9 g/dL (33.0-37.0); Mean Corpuscular Volume 82.6 fL (80.0-94.0); Platelet Count 130 10^3/uL (130-400); Red Blood Cell Count 3.39 10^6/uL (4.70-6.10); Red Cell Dist. Width 15.5 % (11.5-14.5); White Blood Cell Count 9.1 10^3/uL (4.8-10.8)
[2023-10-18 07:51] VITALS: BP 116/76
[2023-10-18] MEDS: COMTAN 200 MG PO ×2 (08:07→13:06)
[2023-10-18] MEDS: SINEMET 25-100 1 TABLET PO ×2 (08:07→13:06)
--- NOTE | 2023-10-18 09:22 | W.DCSUMMARY ---
Discharge Summary
Discharge Data
Date of Admission: 10/12/23
Date of Discharge: 10/18/23
-
Pending Results: No
Hospital Course
61 years old male who presented with hematoma formation around the right mid abdomen and right groin. He had fever with increasing pain and bruising in the right lower flank and right scrotum. Patient's hemoglobin was 11.5 which was lower than
baseline around 14. He subsequently had acute blood loss anemia with hemoglobin down to 6.9. He was given total of 4 units of red blood cells, one unit of platelets and tranexamic acid. Patient had history of robotic right inguinal hernia repair
[address] Rader. Scan of the abdomen & pelvis showed large 18 x 13 x 8 cm hematoma extending from the right groin into the right mid abdomen with no air-fluid level. Patient had arteriogram that showed no extravasation. Blood culture did
not show any growth. He was initially given empiric antibiotic but later diagnosed with systemic inflammatory response syndrome. He was followed by surgery and infectious diseases events solutions consultant. He was monitored off antibiotics. Hemoglobin
stabilized around 9. He was given pain medicine and his pain became controlled with use of Tylenol and tramadol. Physical therapy was consulted. Patient was able to ambulate with not much distress. Patient had diagnosis of myelodysplastic
syndrome and he was in process of following with oncology. Oncologist followed his a progress in the hospital. Patient remained hemodynamically stable and was discharged in a stable condition.
Physical exam:
General: Acute on chronically ill
HEENT: Normocephalic, Atraumatic and Moist Mucous Membranes
Respiratory: Clear to Auscultation; Negative Wheezes, Rales or Rhonchi
Cardiac: Regular Rhythm and S1/S2
GI: Soft, less Tender right side > left side, Bruising seen on right side and Nondistended.
hematoma within the scrotum
Musculoskeletal: No Clubbing, No Cyanosis and No Edema
Neuro: Awake, Alert and Oriented
Psych: Calm
Total discharge time spent to see the patient on the floor, examine the patient, review data and lab results, discuss discharge plan with patient, nursing staff around 65 minutes
Discharge Plan
-
Patient Disposition: Home with Home Care
Discharge Diagnosis/Procedures: Postoperative hematoma
Acute blood loss anemia
Diet: As tolerated
Referrals:
Jerzy Ames, DO [Family Provider] - in one to two weeks
Jerrell Rader MD [Active] - in one to two weeks
Prescriptions:
New
tramadol 50 mg tablet
50 mg PO BID PRN (Reason: severe pain) Qty: 10 0RF
acetaminophen [Tylenol Extra Strength] 500 mg Tablet
1,000 mg PO Q6H PRN (Reason: mild to moderate pain) Qty: 20 0RF
Continued
entacapone 200 mg Tablet
200 mg PO QID
tadalafil 5 mg Tablet
5 mg PO DAILYPRN PRN (Reason: ed)
carbidopa-levodopa 25-100 mg Tablet
1 tab PO QID
propranolol 10 mg tablet
20 mg PO BIDPRN PRN (Reason: tremors)
Discontinued
oxycodone 5 mg tablet
5 - 10 mg PO Q4HPRN PRN (Reason: moderate to severe pain) Qty: 14 0RF
Patient Comments:
10/12/2023: last filled 10/08/23, 14 tabs for 2 days from [facility]
acetaminophen 500 mg Tablet
1,000 mg PO Q6H PRN (Reason: mild pain)
Patient Comments:
10/12/2023: alternating with ibuprofen
ibuprofen 200 mg Tablet
600 mg PO Q6H PRN (Reason: mild pain)
Patient Comments:
10/12/2023: alternating with acetaminophen
Discharge Orders:
Discharge Patient (As Directed); Ordered 10/18/23
Ordered By: Kd Barron
Discharge Date and Time
Print Language: CANADIAN
--- NOTE | 2023-10-18 10:31 | W.PN.GS2 ---
Today's Communication / Plan
-
-- DC today
-- Outpatient follow-up with Dr. Rader
Assessment / Plan
-
63-year-old male with Parkinson's, MDS, recent robotic inguinal hernia repair on 10/[address] Rader presenting with hematoma formation
Initial CTA showing large 18 x 13 x 8 cm hematoma extending from the right groin into the right mid abdomen, no air-fluid level.
Arteriogram on 10/12 without extravasation.
s/p TXA and platelet transfusion on 10/12
s/p 2 units PRBC's on 10/13
Hemoglobin response after 2 U (9.5 from 7.4). Given negative arteriogram and stable h/h, bleeding has likely stopped.
Thrombocytopenia improved today in setting of MDS
Significant leukocytosis present on admission, now resolved: hematology following with us, ?secondary to MDS/ reactive. Do not suspect that this is infection of surgical site
Low grade temps likely secondary to compartmentalized blood, last temp was 100.6 @1845 on 10/13
VSS
+bowel function, voiding without difficulty
No plans for emergent surgery for evacuation of hematoma, will follow with conservative measures
--Hb and plts stabilized
--Hematology following with us given h/o MDS, appreciate
--Regular diet
--Analgesics/antiemetics prn
--Scrotal elevation/support for relief of dependent edema
--Ice packs as tolerated
--SCD's for VTE ppx, hold chemical ppx given bleeding concern
--OK for DC from surgical perspective
--Outpatient follow-up with Dr. Rader, will coordinate
Subjective Data
-
Date of Service: October 18, 2023
No significant complaints or changes. Pain stable. No dizziness or lightheadedness.
Objective Data
-
Intake and Output
06/26/24 06/27/24 06/28/24
06:59 06:59 06:59
Intake Total 1320 / 1320 240 / 240
Output Total 840 / 840 600 / 600
Balance 480 / 480 -360 / -360
Intake:
Oral fluids 1320 / 1320 240 / 240
Output:
Urine, Walker 840 / 840
Urine, Voided 600 / 600
Vital Signs
Temp Pulse Resp BP Pulse Ox
98.1 F 80 19 116/76 100
10/18/23 07:51 10/18/23 07:51 10/18/23 07:51 10/18/23 07:51 10/18/23 08:10
Lab Results
10/18/23 05:53
10/16/23 06:39
Calcium 8.1 mg/dl (8.4-10.2) L 10/16/23 06:39
Total Bilirubin 1.5 mg/dl (0.2-1.3) H 10/16/23 06:39
AST 18 U/L (17-59) 10/16/23 06:39
ALT < 10 U/L (0-50) 10/16/23 06:39
Alkaline Phosphatase 56 U/L (38-126) 10/16/23 06:39
Total Protein 5.1 g/dl (6.3-8.2) L 10/16/23 06:39
Albumin 2.9 g/dl (3.5-5.0) L 10/16/23 06:39
Physical Exam
-
Gen: NAD
Abd: firmness extending from R groin to lateral mid abdomen without rebound or guarding, flank ecchymosis, tender to palpation, bilateral testicles palpable and non swollen, hematoma within the scrotum with moderate dependent edema present,
incisions c/d/i - ecchymosis, no erythema or drainage
--- NOTE | 2023-10-18 10:52 | CM ---
Patient is for discharge to home today with [facility], patient's equipment has been ordered from [facility].
Plan; Home today with spouse and [facility].
[2023-10-18 13:15] VITALS: BP 117/75
--- NOTE | 2023-10-18 13:40 | PTCARENOTE ---
Went over discharge instructions with patient. Removed IV's. Patient awaiting transport for discharge.
== END 2023-10-18 13:58 | disposition home health service (06) | DRG 920 ==
LOC: 4 WEST ACU 21:51
PROVIDERS: Clinical Nurse Specialist Family Health; Internal Medicine Hematology & Oncology; Radiology Vascular & Interventional Radiology; Registered Nurse; ADMITTING PHYSICIAN Hospitalist; ATTENDING PHYSICIAN Internal Medicine; CONSULT PHYSICIAN Internal Medicine Hematology & Oncology; CONSULT PHYSICIAN Internal Medicine Infectious Disease; EMERGENCY PHYSICIAN Emergency Medicine; FAMILY PHYSICIAN Family Medicine; OTHER PHYSICIAN Surgery
PROC: 30233R1 Transfusion of Nonautologous Platelets into Peripheral Vein, Percutaneous Approach (ICD-10-PCS; 2023-10-13)
PROC: B41C1ZZ Fluoroscopy of Pelvic Arteries using Low Osmolar Contrast (ICD-10-PCS; 2023-10-13)
PROC: 30233N1 Transfusion of Nonautologous Red Blood Cells into Peripheral Vein, Percutaneous Approach (ICD-10-PCS; 2023-10-14)
DX: N99.821 Postprocedural hemorrhage of a genitourinary system organ or structure following other procedure (principal); D61.818 Other pancytopenia; D62 Acute posthemorrhagic anemia; R65.10 Systemic inflammatory response syndrome (SIRS) of non-infectious origin without acute organ dysfunction; D69.59 Other secondary thrombocytopenia; G20.A1 Parkinson's disease without dyskinesia, without mention of fluctuations; D46.9 Myelodysplastic syndrome, unspecified
CPT/HCPCS: 36246; 71046; 74174; 75736; 76937; 80053; 81003; 81015; 83605; 85025; 85027; 85610; 85730; 86850; 86900; 86901; 86920; 87040; 87086; 93005; 96361; 96374; 96375; 96376; 97116; 97162; 97166; 99152; 99153; 99291; C1769; C1887; P9016; P9073; Q9967

== ENCOUNTER 2023-10-19 16:36 | Emergency (ER) | payer OTHER, SELFPAY ==
[2023-10-19 16:38] VITALS: BP 124/83
--- NOTE | 2023-10-19 18:25 | ED.GENMED ---
History of Present Illness
General
Chief Complaint: Swelling
Source: patient
Exam Limitations: none
Time Seen by Provider: 10/19/23 17:54
History of Present Illness
History of Present Illness:
This is a 63 year old male that comes in with c/o bilateral leg swelling. States that he was just discharge yesterday after having a hernia surgery and developed a large hematoma. States that today he was up walking around and then would rest.
States that he sat at his desk to do some work and he was there about 20 min and from the knee down he has leg swelling. States that there is no pain or warm. States that he still has some abd discomfort that comes in waves. States that he did move
his bowel 4 times today. Denies any fever, chills, chest pain, SOB, abd pain, nausea, vomiting, diarrhea, headache, dizziness, urinary burning
Past History
Past History
ED Past Medical History: Cancer (Myelodysplastic syndrome (MDS)), Other (Parkinson's, Bone marrow biopsy,) and Other (Thrombocytopenia)
ED Past Surgical History: Other (Hernia, )
Social History
Tobacco: Non-smoker
Alcohol: None
Drug: None
Personal:
Living: with family
Employment: Other
Family History
Family History: Other
Review of Systems
Review of Systems
All Other Systems: ROS reviewed and negative except as documented in HPI and ROS
Constitutional: Reports no symptoms; Denies fever or chills
EENT: Reports no symptoms
Respiratory: Denies cough or trouble breathing
Cardiac: Reports no symptoms; Denies chest pain
ABD/GI: Reports abdominal pain (Comes in waves); Denies nausea, vomiting or diarrhea
: Reports no symptoms; Denies dysuria, frequency or urgency
Musculoskeletal: Reports edema (Bilateral leg swelling)
Skin: Reports no symptoms
Neurological: Reports no symptoms; Denies dizzy or headache
Psychiatric: Reports no symptoms
Phy Exam
General Physical Exam
General Presentation: no apparent distress
General age: appears stated age
General Skin: warm and dry
General Habitus: elderly
General Mental: alert
General Hydration: appears well hydrated
ENT Exam
ENT Exam: TM's normal, pharynx normal and neck supple
Eye Exam
Eye Exam: EOMI
Cardiovascular Exam
Cardiovascular Exam: regular rate/rhythm and normal peripheral pulses
Pulmonary Exam
Pulmonary Exam: no respiratory distress, no rales, chest non tender, no crackles, no rhonchi, no wheezing, no cough and decreased breath sounds (Right base)
Gastrointestinal Exam
Gastrointestinal Exam: normal bowel sounds, non tender, no organomegaly, no pulsatile mass and non distended
Musculoskeletal Exam
Musculoskeletal Exam: full ROM and edema (Bilateral lower feet and leg edema, nonpitting, )
Skin Exam
Skin Exam: normal color, warm/dry, no petechia and other (Old contusion on right flank down into hip and lateral and posterior thigh. right back contusion. Small surgical incision with dermabond dry and Intact)
Psychiatric Exam
Psychiatric Exam: normal mood/affect
Scores
Heart Failure Risk
Heart Failure Risk Score: Not Applicable
Course
Orders/Labs/Results
Orders:
Orders
10/19/23 18:24
CR Chest - 2 Views Urgent
Comment:
Reason For Exam: Decreased breath right base, edema
US Periph Venous LOWER Ext [place] Urgent
Comment:
Reason For Exam: Bilateral leg edema.
10/19/23 18:35
Electrocardiogram (*1) Urgent
Reason for Study: Other
Other Reason for Exam: Edema
EKG- Treatment ONCE
10/19/23 18:51
Complete Blood Count/With Diff Urgent
Comprehensive Metabolic Panel Urgent
Manual Differential Urgent
NT-proBNP Urgent
Troponin I Urgent
Abnormal Lab Results
10/19/23
18:51
WBC 12.6 H 10^3/uL
(4.8-10.8)
RBC 3.85 L 10^6/uL
(4.70-6.10)
Hgb 10.7 L g/dL
(13.0-18.0)
Hct 32.2 L %
(39.0-52.0)
RDW 15.9 H %
(11.5-14.5)
MPV 12.4 H fL
(7.4-10.4)
Abs Neuts (Manual) 7.8 H 10^3/uL
(1.4-6.5)
Lymphocytes (Manual) 15 L %
(20-51)
Monocytes (Manual) 21 H %
(2-9)
Sodium 133 L mmol/L
(135-145)
Carbon Dioxide 31 H mmol/L
(22-30)
Glucose 100 H mg/dl
(70-99)
Total Protein 5.9 L g/dl
(6.3-8.2)
10/19/23 18:51
10/19/23 18:51
Vital Signs
Initial and Last Documented VS:
Initial Vital Signs
Temp Pulse Resp BP Pulse Ox
98.6 F 93 18 124/83 98
10/19/23 16:38 10/19/23 16:38 10/19/23 16:38 10/19/23 16:38 10/19/23 16:38
Last Documented Vital Signs
Temp Pulse Resp BP Pulse Ox
98.9 F 85 20 114/74 97
10/19/23 19:47 10/19/23 19:47 10/19/23 19:47 10/19/23 19:47 10/19/23 19:47
MDM/Problems Addressed
Differential Diagnosis Includes:
Dependent edema, DVT,
MDM/Problems Addressed:
This is a 63 year old male that was discharged yesterday. Today returns with bilateral leg swelling.
Will get labs, US and chest x-ray.
Back into see patient. Reviewed labs, chest X-ray finding and US. Explained to patient that he doesn't have a fever and he is not coughing. However, his WBC are slighlty elevated. so will treat with antibiotics. Will have patient wear compression
stockings. Will give patient an antibiotic here and a prescription will be sent to his pharmacy. Patient to return with increased swelling, fever pain, or any other concerns.
Chronic conditions affecting care: Cancer (MDS)
Acute Exacerbation and/or Progression of Chronic Illness:
NA
*Radiology
Radiology exam reviewed: preliminary read by ED provider (Chest- negative for active disease. ) and radiology read reviewed (US-No evidence of right or left lower extremity DVT. Chest-Findings suspicious for subtle Pneumonia at the right lung
base with trace parapneumonic effusion. )
*Pulse Oximetry
Patient hypoxic: no
*Budget Engineer Interpretation
Rate: Budget Engineer- N/A
*Critical Care Note
Total Time (30-74mins, 75-104mins- exclusive of procedures): Not Applicable
ED Attending Note
-
Portions of this chart may have been created with voice recognition software.� Occasional wrong word or��sound alike� substitutions may have occurred due to the inherent limitations of voice recognition software.
Discharge Plan
Departure
Patient Disposition: Home (Routine Discharge)
Date of Disposition: 10/19/23
Time of Disposition: 20:33
Patient with high blood pressure during this ER visit?: No
Condition: Good
Covid-19: Not Applicable
Discharge Problem:
Localized swelling of both lower legs, Pneumonia
Instructions: Dependent Edema (DC), Pneumonia, Adult (DC)
Prescriptions:
New
doxycycline hyclate 100 mg capsule
100 mg PO BID Qty: 19 0RF
No Action
entacapone 200 mg Tablet
200 mg PO QID
tadalafil 5 mg Tablet
5 mg PO DAILYPRN PRN (Reason: ed)
carbidopa-levodopa 25-100 mg Tablet
1 tab PO QID
propranolol 10 mg tablet
20 mg PO BIDPRN PRN (Reason: tremors)
tramadol 50 mg tablet
50 mg PO BID PRN (Reason: severe pain) Qty: 10 0RF
acetaminophen [Tylenol Extra Strength] 500 mg Tablet
1,000 mg PO Q6H PRN (Reason: mild to moderate pain) Qty: 20 0RF
Referrals:
Jerzy Ames, DO [Family Provider] - Follow up in 2-3 days
Activity Restrictions/Additional Instructions:
As discussed, your blood work shows slight elevation of the WBC. Your Chest x-ray shows that there is a subtle pneumonia at the right base. You have been given your first dose of antibiotic here and a prescription has been sent to your pharmacy.
Your Ultrasound is negative for any blood clots. This may just be dependent edema. Please use LOKI stocking to help decrease the swelling. Put them on before getting out of bed in the morning. Elevate your legs when sitting around. Follow up with
the family doctor for recheck. IF YOU HAVE INCREASED SWELLING, PAIN, REDNESS, FEVER OR YOU HAVE ANY OTHER CONCERNS, PLEASE RETURN TO THE EMERGENCY ROOM.
Interventions
Interventions:
*Risk Screen - Suicide Last Done: 10/19/23 19:47
*General Assessment Last Done: 10/19/23 19:47
ED- Fall Risk Assessment Last Done: 10/19/23 19:47
*ED COVID-19 Vaccine History Last Done: 10/19/23 19:47
ED- Cardiac Assessment Last Done: 10/19/23 19:47
ED- Pulmonary Assessment Last Done: 10/19/23 19:47
ED-Skin Assessment Last Done: 10/19/23 19:47
Discharge Date and Time
Print Language: NAURUAN
[2023-10-19 19:05] LABS: Hematocrit 32.2 % (39.0-52.0); Hemoglobin 10.7 g/dL (13.0-18.0); Mean Corp Hgb Conc. 33.2 g/dL (33.0-37.0); Mean Corpuscular Hgb 27.8 pg (27.0-31.0); Mean Corpuscular Volume 83.6 fL (80.0-94.0); Mean Platelet Volume 12.4 fL (7.4-10.4); Platelet Count 169 10^3/uL (130-400); Red Blood Cell Count 3.85 10^6/uL (4.70-6.10); Red Cell Dist. Width 15.9 % (11.5-14.5); White Blood Cell Count 12.6 10^3/uL (4.8-10.8)
[2023-10-19 19:20] LABS: ALT (SGPT) < 10 U/L (0-50); AST (SGOT) 24 U/L (17-59); Albumin 3.5 g/dl (3.5-5.0); Alkaline Phosphatase 65 U/L (38-126); Blood Urea Nitrogen 13 mg/dl (9-20); Calcium 8.5 mg/dl (8.4-10.2); Carbon Dioxide 31 mmol/L (22-30); Chloride 100 mmol/L (98-107); Glucose 100 mg/dl (70-99); Potassium 4.3 mmol/L (3.5-5.1); Sodium 133 mmol/L (135-145); Total Bilirubin 1.3 mg/dl (0.2-1.3); Total Protein 5.9 g/dl (6.3-8.2); eGFR > 60.00
[2023-10-19 19:31] LABS: NT-proBNP 126 pg/ml; Troponin I < 0.012 ng/ml
[2023-10-19 19:47] VITALS: BP 114/74
[2023-10-19 19:49] LABS: Absolute Neutrophils -Man Diff 7.8 10^3/uL (1.4-6.5); Band Neutrophils 0 % (0-3); Lymphocytes 15 % (20-51); Monocytes 21 % (2-9); Myelocytes 2 % (-); Normal RBC Morphology Yes; Platelets Checked Yes; Segmented Neutrophils 62 % (42-75)
[2023-10-19 19:50] LABS: Total Cells Counted 100
[2023-10-19] MEDS: VIBRAMYCIN 100 MG PO (21:21)
[2023-10-19 21:23] VITALS: BP 101/79
== END 2023-10-19 21:28 | disposition home or self-care (01) ==
LOC: EMR 16:36
PROVIDERS: Clinical Nurse Specialist Family Health; EMERGENCY PHYSICIAN Emergency Medicine; FAMILY PHYSICIAN Family Medicine
DX: J18.9 Pneumonia, unspecified organism (principal); R60.0 Localized edema; R10.9 Unspecified abdominal pain; G20.A1 Parkinson's disease without dyskinesia, without mention of fluctuations; D69.6 Thrombocytopenia, unspecified; D46.9 Myelodysplastic syndrome, unspecified; Z98.890 Other specified postprocedural states; Z88.0 Allergy status to penicillin
CPT/HCPCS: 99284; 71046; 80053; 83880; 84484; 85025; 93005; 93970

== ENCOUNTER → 2024-01-30 12:21 | Outpatient (REF) | payer OTHER, SELFPAY | LOC: HWRAD 12:21 | PROVIDERS: ATTENDING PHYSICIAN Internal Medicine Hematology & Oncology; FAMILY PHYSICIAN Family Medicine | DX: C93.10 Chronic myelomonocytic leukemia not having achieved remission (principal) | CPT/HCPCS: 74176 ==

== ENCOUNTER → 2024-11-10 09:08 | Outpatient (REF) | payer OTHER, SELFPAY | LOC: RCS 09:08 | PROVIDERS: ATTENDING PHYSICIAN Internal Medicine Cardiovascular Disease; FAMILY PHYSICIAN Family Medicine | DX: Z94.84 Stem cells transplant status (principal); I48.0 Paroxysmal atrial fibrillation; I51.7 Cardiomegaly | CPT/HCPCS: 93306 ==